=== PATIENT | female | born 1925 | race Caucasian/White ===

== ENCOUNTER 2017-08-13 21:52 | Inpatient (IN) ==
[2017-08-14] MEDS ORDERED: 0.9 % Sodium Chloride 1,000 ML IVC SCH (00:15)
[2017-08-14] MEDS ORDERED: Naloxone 0.4 MG/ML INJ IVP PRN (09:25)
[2017-08-14] MEDS: Pantoprazole 40 MG VIAL IVP SCH (09:36)
[2017-08-14 09:44] LABS: Basophils % 0.1 %; Eosinophils # 0.2 K/mcL (0.0-0.6); Eosinophils % 1.8 %; Hematocrit 38.1 % (35.3-44.9); Hemoglobin 12.8 g/dL (11.5-15.4); Immature Granulocytes % 0.2 % (0-4); Lymphocytes # 0.6 K/mcL (0.6-4.6); Lymphocytes % 7.9 %; Mean Corpuscular HGB Conc 33.6 g/dL (31.6-35.5); Mean Corpuscular Hemoglobin 28.8 pg (28.0-33.3); Mean Corpuscular Volume 85.6 fL (83.0-100.0); Mean Platelet Volume 9.6 fL (9.4-12.4); Monocytes % 12.4 %; Neutrophils # 6.3 K/mcL (1.6-8.9); Platelet Count 193 K/mcL (140-400); Red Blood Count 4.45 M/mcL (3.82-4.97); Red Cell Distribution Width 14.3 % (11.5-14.5); Segmented Neutrophils % 77.6 %
[2017-08-14 10:01] LABS: BUN/Creatinine Ratio 23 (6-26); Blood Urea Nitrogen 18 mg/dL (7-20); Carbon Dioxide 26 mEq/L (19-29); Chloride 103 mEq/L (98-109); Potassium 2.9 mEq/L (3.5-4.5); Sodium 139 mEq/L (136-145); eGFR For African Americans > 60 (> 60)
[2017-08-14 10:02] LABS: Alanine Aminotransferase 18 Units/L (0-55); Albumin 3.2 g/dL (3.5-5.0); Albumin/Globulin Ratio 1.1 (1.1-2.2); Alkaline Phosphatase 71 Units/L (38-126); Aspartate Amino Transferase 27 Units/L (5-34); Bilirubin,Direct 0.7 mg/dL (0.0-0.5); Bilirubin,Indirect 1.6 mg/dL (0.0-1.2); Calcium 8.8 mg/dL (8.6-10.8); Globulin 2.9 g/dL (2.4-3.5); Glucose 98 mg/dL (70-99); Magnesium 1.3 mg/dL (1.6-2.6); Osmolality,Calculated 290 (280-300); Phosphorous 2.5 mg/dL (2.3-4.7); Total Protein 6.1 g/dL (6.0-8.3); eGFR For Non-African Americans > 60 (> 60)
[2017-08-14 10:03] LABS: Bilirubin,Total 2.3 mg/dL (0.2-1.2)
--- NOTE | 2017-08-14 12:15 | General Surg History&Physical ---
Date of Encounter: 08/14/17 Time of Encounter: 10:00 Assessment and Plan (1) Partial small bowel obstruction Current Visit: Yes Status: Acute The assessment and plan as outlined above was discussed with the patient and/or family members who expressed understanding and agreement. All questions were answered. Discussed with the patient that her CT scan is consistent with a partial small bowel obstruction as are her complaints. It is likely it is a partial small bowel obstruction due to adhesions. There is not an ICD 10 code in [facility] that allows us to pick that option. As she currently feels better and is still passing gas and stool through her colostomy we will start her on clears and see if she tolerates. (2) Nausea and vomiting Current Visit: Yes Status: Acute The assessment and plan as outlined above was discussed with the patient and/or family members who expressed understanding and agreement. All questions were answered. When necessary anti emetic Qualifiers: Vomiting type: unspecified Vomiting Intractability: non-intractable Qualified Code(s): R11.2 - Nausea with vomiting, unspecified (3) Abdominal pain Current Visit: No Status: Acute The assessment and plan as outlined above was discussed with the patient and/or family members who expressed understanding and agreement. All questions were answered. When necessary pain control Qualifiers: Abdominal location: generalized Qualified Code(s): R10.84 - Generalized abdominal pain (4) Headache Current Visit: Yes Status: Acute The assessment and plan as outlined above was discussed with the patient and/or family members who expressed understanding and agreement. All questions were answered. patient is complaiinng of a headache starting today, will give prn tylenol and see if it helps Qualifiers: Headache type: unspecified Headache chronicity pattern: acute headache Intractability: not intractable Qualified Code(s): R51 - Headache History of Present Illness Chief complaint: nausea,vomiting, abdominal pain HPI: Ms. Lange is a 89 year old female who presents with abdominal pain nausea and vomiting since Tuesday which is 2 half days ago. She states the pain was throughout her abdomen and was sharp and as well as crampy. Over time the pain got worse. She was still passing flatus and having bowel movements throughout this time. She denies any fevers chills or night sweats. She denies any dysuria. Patient had an APR in 1996 for rectal cancer and did not receive any chemotherapy or radiation afterwards. She is unaware when her last colonoscopy was. Today she denies any abdominal pain nausea or vomiting. She denies any melena or hematochezia. Due to her abdominal pain last evening she presented to [place] [facility]. CT scan of the abdomen and pelvis was done which showed dilated loops of small bowel filled with fluid proximally and decompressed small bowel distally but no obvious transition point. Past Med Surg Social Fam HX - Past Medical History Source: patient Medical history: arthritis, cancer (rectal cancer/s.p APR (no chemo/xrt)), hypertension, other (renal stones) Psychiatric history: no psych history - Past Surgical History Surgical History: other (lithotripsy, APR, partial hysterectomy) - Social History Smoking Status: Never smoker Smokeless Tobacco Status: No Alcohol use: rarely Drug use: none - Family History Grandmother History Unknown: Yes Medications and Allergies Cholecalciferol (Vitamin D3) [Vitamin D3] 2,000 meq PO DAILY 06/21/16 [History] Metoprolol XL (24 HR) Succ [Toprol Xl] 100 mg PO DAILY 06/21/16 [History] cloNIDine HCl [CloNIDine HCl] 0.1 mg PO BID 06/21/16 [History] Acetaminophen [Tylenol] 650 mg PO Q6HR 10/05/16 [History] hydroCHLOROthiazide [Hydrochlorothiazide] 25 mg PO DAILY 08/13/17 [History] 3 Allergy/AdvReac Type Severity Reaction Status Date / Time Amoxicillin [From Augmentin] AdvReac Hives Verified 10/05/16 09:48 celecoxib [From Celebrex] AdvReac Hives Verified 10/05/16 09:48 ciprofloxacin [From Cipro] AdvReac Hives Verified 10/05/16 09:48 clavulanic acid AdvReac Hives Verified 10/05/16 09:48 [From Augmentin] penicillamine AdvReac Hives Verified 10/05/16 09:48 Sulfa (Sulfonamide AdvReac Hives Verified 10/05/16 09:48 Antibiotics) Review of Systems All systems PM: reviewed and no additional remarkable complaints except as stated All systems PM: A 10-system review of systems was performed and is negative for pertinent findings except as documented above in the HPI. General Surgery Exam Initial Vital Signs Temp Pulse Resp BP Pulse Ox 98.2 F 78 16 156/67 96 08/14/17 00:05 11/05/17 00:05 08/14/17 00:05 08/14/17 00:05 08/14/17 00:05 - General physical appearance well developed, well nourished, no distress - Eyes PERRL, normal ocular movement - ENT normal mucosa, normocephalic - Neck trachea midline - Respiratory normal expansion, clear to auscultation - Cardiovascular Cardiovascular exam: Present: RRR, no murmurs/rubs/gallops - Abdomen Abdomen general surgery: Present: bowel sounds present, soft, non tender. Absent: distended, guarding, rebound - Integumentary Integumentary general surgery: Present: warm and dry, no abnormal pigmentation - Neurologic Present: CN 2-12 grossly intact, normal coordination - Musculoskeletal Present: normal posture - Psychiatric Psychiatric general surgery: Present: A&Ox3, speech is normal Results - Labs 08/14/17 09:32 08/14/17 09:32 Abnormal lab results Potassium 2.9 mEq/L (3.5-4.5) L 08/14/17 09:32 Magnesium 1.3 mg/dL (1.6-2.6) L 08/14/17 09:32 Total Bilirubin 2.3 mg/dL (0.2-1.2) H 08/14/17 09:32 Direct Bilirubin 0.7 mg/dL (0.0-0.5) H 08/14/17 09:32 Indirect Bilirubin 1.6 mg/dL (0.0-1.2) H 08/14/17 09:32 Albumin 3.2 g/dL (3.5-5.0) L 08/14/17 09:32 Diabetes panel 08/14/17 Range/Units 09:32 Sodium 139 (136-145) mEq/L Potassium 2.9 L (3.5-4.5) mEq/L Chloride 103 (98-109) mEq/L Carbon Dioxide 26 (19-29) mEq/L BUN 18 (7-20) mg/dL Creatinine 0.80 (0.57-1.11) mg/dL Glucose 98 (70-99) mg/dL Calcium 8.8 D (8.6-10.8) mg/dL AST 27 (5-34) Units/L ALT 18 (0-55) Units/L Alkaline Phosphatase 71 (38-126) Units/L Albumin 3.2 L (3.5-5.0) g/dL Calcium panel 08/14/17 Range/Units 09:32 Calcium 8.8 D (8.6-10.8) mg/dL Phosphorus 2.5 (2.3-4.7) mg/dL Albumin 3.2 L (3.5-5.0) g/dL Pituitary panel 08/14/17 Range/Units 09:32 Sodium 139 (136-145) mEq/L Potassium 2.9 L (3.5-4.5) mEq/L Chloride 103 (98-109) mEq/L Carbon Dioxide 26 (19-29) mEq/L BUN 18 (7-20) mg/dL Creatinine 0.80 (0.57-1.11) mg/dL Glucose 98 (70-99) mg/dL Calcium 8.8 D (8.6-10.8) mg/dL Adrenal panel 08/14/17 Range/Units 09:32 Sodium 139 (136-145) mEq/L Potassium 2.9 L (3.5-4.5) mEq/L Chloride 103 (98-109) mEq/L Carbon Dioxide 26 (19-29) mEq/L BUN 18 (7-20) mg/dL Creatinine 0.80 (0.57-1.11) mg/dL Glucose 98 (70-99) mg/dL Calcium 8.8 D (8.6-10.8) mg/dL Total Bilirubin 2.3 H (0.2-1.2) mg/dL AST 27 (5-34) Units/L ALT 18 (0-55) Units/L Alkaline Phosphatase 71 (38-126) Units/L Albumin 3.2 L (3.5-5.0) g/dL All other labs normal. - Imaging CT scan - abdomen: report reviewed, image reviewed CT scan - pelvis: report reviewed, image reviewed
[2017-08-14] MEDS ORDERED: Acetaminophen 325 MG TABLET PO PRN (12:27)
[2017-08-14] MEDS ORDERED: Potassium Chloride 40 MEQ, Lidocaine 1% 2 ML in D5% in Water 500 ML IVPB ONE (15:18)
[2017-08-14] MEDS: D5% in 0.45% NACL w KCl 20 MEQ/1,000 ML MLS IVC SCH (15:57)
[2017-08-14] MEDS: Ondansetron 4 MG/2 ML VIAL IVP PRN (20:59)
[2017-08-14] MEDS: *HR* Morphine 2 MG/ML SYRINGE IVP PRN (20:59)
[2017-08-15 04:29] LABS: BUN/Creatinine Ratio 16 (6-26); Blood Urea Nitrogen 11 mg/dL (7-20); Calcium 8.5 mg/dL (8.6-10.8); Carbon Dioxide 26 mEq/L (19-29); Chloride 105 mEq/L (98-109); Glucose 104 mg/dL (70-99); Osmolality,Calculated 290 (280-300); Potassium 3.2 mEq/L (3.5-4.5); eGFR For African Americans > 60 (> 60); eGFR For Non-African Americans > 60 (> 60)
[2017-08-15 04:40] LABS: Sodium 140 mEq/L (136-145)
[2017-08-15] MEDS: Pantoprazole 40 MG VIAL IVP SCH (09:29)
[2017-08-15] MEDS: Ondansetron 4 MG/2 ML VIAL IVP PRN (12:58)
[2017-08-15] MEDS: *HR* Morphine 2 MG/ML SYRINGE IVP PRN (14:20)
--- NOTE | 2017-08-15 14:51 | General Surgery Progress Note ---
<PrasanthShonda Candice - Last Filed: 08/15/17 17:20> Date of Encounter: 08/15/17 Time of Encounter: 14:51 - Assessment and Plan (1) Partial small bowel obstruction Current Visit: Yes Status: Acute 2-view abdominal x-ray consistent with small bowel obstruction. Will place NG tube. NPO IVF Continue antiemetics and discomfort management. Attempted to speak with patient's daughter per her request and updated on POC, but got voicemail. Left message for daughter to return call and bedside RN could update her. (2) Nausea and vomiting Current Visit: Yes Status: Acute see above Qualifiers: Vomiting type: unspecified Vomiting Intractability: non-intractable Qualified Code(s): R11.2 - Nausea with vomiting, unspecified (3) Lactose intolerance in adult Current Visit: Yes Status: Acute No lactose on trays Subjective Patient reports: no new complaints, feels better, tolerating liquids well (did not attempt lunch, stating "I am lactose intolerant and that is mostly what was on the tray"), voiding w/o difficulty, flatus (continues to have flatus and output in her ostomy), bowel movement, afebrile Objective Vital Signs - Last 8 Hours Temp Pulse Resp BP Pulse Ox 08/15/17 14:37 97.9 F 89 16 150/93 96 08/15/17 10:18 97.9 F 89 14 152/75 97 08/15/17 07:06 98.6 F 91 14 145/81 95 Intake and Output 08/14/17 08/15/17 08/15/17 23:59 07:59 15:59 Intake Total 742 / 742 350 / 350 240 / 240 Output Total 850 / 850 0 / 0 260 / 260 Balance -108 / -108 350 / 350 -20 / -20 Intake: IV Fluids 522 / 522 350 / 350 KCl 20mEq IN D5%-0.45 NACL 20 350 / 350 meq In 1,000 ml @ 45 mls/hr IVC .[id number] [facility] Rx#:[id number] KCl 40 MEQ Xylocaine 2 ML In 522 / 522 Dextrose 5% 500 ML @ 130.5 mls/ hr IVPB ONCE ONE Rx#:[id number] Oral 220 / 220 0 / 0 240 / 240 Output: Urine 550 / 550 0 / 0 200 / 200 Stool 300 / 300 0 / 0 60 / 60 Other: Meal Dinner Lunch Percent of Meal Consumed 0% Stool Consistency loose liquid liquid Stool Color Green Brown # Voids 1 - General physical appearance no distress, moderate pain - ENT atraumatic, normocephalic - Neck Neck exam: trachea midline, no venous distension - Respiratory normal expansion, normal respiratory effort, clear to auscultation - Cardiovascular Cardiovascular exam: Present: RRR, murmurs - Abdomen Abdomen: Present: bowel sounds present, soft, distended, tender, wound (air and liquid output noted in ostomy) Abdominal Tenderness: diffusely - Integumentary no rash, no growths - Neurologic normal coordination, normal sensation - Musculoskeletal normal gait, normal posture - Psychiatric oriented to time, oriented to person, oriented to place, speech is normal, memory intact - Labs 08/14/17 09:32 08/15/17 02:54 Diabetes panel 08/15/17 Range/Units 02:54 Sodium 140 (136-145) mEq/L Potassium 3.2 L (3.5-4.5) mEq/L Chloride 105 (98-109) mEq/L Carbon Dioxide 26 (19-29) mEq/L BUN 11 (7-20) mg/dL Creatinine 0.70 (0.57-1.11) mg/dL Glucose 104 H (70-99) mg/dL Calcium 8.5 L (8.6-10.8) mg/dL Calcium panel 08/15/17 Range/Units 02:54 Calcium 8.5 L (8.6-10.8) mg/dL Pituitary panel 08/15/17 Range/Units 02:54 Sodium 140 (136-145) mEq/L Potassium 3.2 L (3.5-4.5) mEq/L Chloride 105 (98-109) mEq/L Carbon Dioxide 26 (19-29) mEq/L BUN 11 (7-20) mg/dL Creatinine 0.70 (0.57-1.11) mg/dL Glucose 104 H (70-99) mg/dL Calcium 8.5 L (8.6-10.8) mg/dL Adrenal panel 08/15/17 Range/Units 02:54 Sodium 140 (136-145) mEq/L Potassium 3.2 L (3.5-4.5) mEq/L Chloride 105 (98-109) mEq/L Carbon Dioxide 26 (19-29) mEq/L BUN 11 (7-20) mg/dL Creatinine 0.70 (0.57-1.11) mg/dL Glucose 104 H (70-99) mg/dL Calcium 8.5 L (8.6-10.8) mg/dL Consult Discharge Plan - Plan Referrals: Dudley Gómez, DO [Primary Care Provider] - <Lisa Neely - Last Filed: 08/15/17 17:28> Date of Encounter: 08/15/17 - Assessment and Plan (1) Partial small bowel obstruction Current Visit: Yes Status: Acute patient with worsening of her psbo ngt ordered npo prn pain control gi/dvt prophylaxis OOB to chair ivf hydration (2) Nausea and vomiting Current Visit: Yes Status: Acute prn antiemetics Qualifiers: Vomiting type: unspecified Vomiting Intractability: non-intractable Qualified Code(s): R11.2 - Nausea with vomiting, unspecified (3) Abdominal pain Current Visit: No Status: Acute Qualifiers: Abdominal location: generalized Qualified Code(s): R10.84 - Generalized abdominal pain Subjective Narrative: pain is much worse today, she has no appetite, is nauseated still passing stool and liquid into colostomy Objective Vital Signs - Last 8 Hours Temp Pulse Resp BP Pulse Ox 08/15/17 14:37 97.9 F 89 16 150/93 96 08/15/17 10:18 97.9 F 89 14 152/75 97 Intake and Output 08/15/17 08/15/17 08/15/17 07:59 15:59 23:59 Intake Total 350 / 350 240 / 240 650 / 650 Output Total 0 / 0 260 / 260 Balance 350 / 350 -20 / -20 650 / 650 Intake: IV Fluids 350 / 350 650 / 650 KCl 20mEq IN D5%-0.45 NACL 20 350 / 350 650 / 650 meq In 1,000 ml @ 45 mls/hr IVC .[id number] [facility] Rx#:[id number] Oral 0 / 0 240 / 240 Output: Urine 0 / 0 200 / 200 Stool 0 / 0 60 / 60 Other: Meal Lunch Percent of Meal Consumed 0% Stool Consistency liquid Stool Color Brown # Voids 1 - General physical appearance well developed, well nourished, moderate pain - Eyes PERRL, normal ocular movement - ENT normal mucosa, normocephalic - Neck Neck exam: trachea midline - Respiratory normal expansion, clear to auscultation - Cardiovascular Cardiovascular exam: Present: RRR - Abdomen Abdomen: Present: bowel sounds present, soft, distended, tender. Absent: guarding, rebound Abdominal Tenderness: diffusely - Integumentary no rash, no growths - Neurologic normal coordination - Musculoskeletal normal posture - Psychiatric oriented to time, oriented to person, oriented to place, memory intact - Labs 08/14/17 09:32 08/15/17 02:54 Diabetes panel 08/15/17 Range/Units 02:54 Sodium 140 (136-145) mEq/L Potassium 3.2 L (3.5-4.5) mEq/L Chloride 105 (98-109) mEq/L Carbon Dioxide 26 (19-29) mEq/L BUN 11 (7-20) mg/dL Creatinine 0.70 (0.57-1.11) mg/dL Glucose 104 H (70-99) mg/dL Calcium 8.5 L (8.6-10.8) mg/dL Calcium panel 08/15/17 Range/Units 02:54 Calcium 8.5 L (8.6-10.8) mg/dL Pituitary panel 08/15/17 Range/Units 02:54 Sodium 140 (136-145) mEq/L Potassium 3.2 L (3.5-4.5) mEq/L Chloride 105 (98-109) mEq/L Carbon Dioxide 26 (19-29) mEq/L BUN 11 (7-20) mg/dL Creatinine 0.70 (0.57-1.11) mg/dL Glucose 104 H (70-99) mg/dL Calcium 8.5 L (8.6-10.8) mg/dL Adrenal panel 08/15/17 Range/Units 02:54 Sodium 140 (136-145) mEq/L Potassium 3.2 L (3.5-4.5) mEq/L Chloride 105 (98-109) mEq/L Carbon Dioxide 26 (19-29) mEq/L BUN 11 (7-20) mg/dL Creatinine 0.70 (0.57-1.11) mg/dL Glucose 104 H (70-99) mg/dL Calcium 8.5 L (8.6-10.8) mg/dL - Imaging Abdominal x-ray: report reviewed, image reviewed - Attending Attestation I have personally performed a face to face evaluation on this patient. I have reviewed and agree with the care plan. History and Exam by me shows:
[2017-08-15] MEDS: D5% in 0.45% NACL w KCl 20 MEQ/1,000 ML MLS IVC SCH (17:15)
[2017-08-15] MEDS ORDERED: Lidocaine Jelly 11 ml Syringe TP STA (17:19)
[2017-08-15] MEDS ORDERED: Chloraseptic Spray 177 ML BOTTLE MM PRN (17:29)
[2017-08-15] MEDS: Ondansetron 4 MG/2 ML VIAL IVP SCH (21:01)
[2017-08-16] MEDS: Ondansetron 4 MG/2 ML VIAL IVP SCH ×7 (02:31→23:45)
[2017-08-16] MEDS: D5% in 0.45% NACL w KCl 20 MEQ/1,000 ML MLS IVC SCH ×4 (07:55→20:45)
[2017-08-16] MEDS: Pantoprazole 40 MG VIAL IVP SCH (08:33)
[2017-08-16 08:58] LABS: Basophils % 0.2 %; Eosinophils % 0.7 %; Hematocrit 41.9 % (35.3-44.9); Hemoglobin 14.2 g/dL (11.5-15.4); Immature Granulocytes % 0.3 % (0-4); Lymphocytes # 0.6 K/mcL (0.6-4.6); Lymphocytes % 9.6 %; Mean Corpuscular HGB Conc 33.9 g/dL (31.6-35.5); Mean Corpuscular Hemoglobin 28.4 pg (28.0-33.3); Mean Corpuscular Volume 83.8 fL (83.0-100.0); Mean Platelet Volume 9.7 fL (9.4-12.4); Monocytes # 0.9 K/mcL (0.0-1.3); Monocytes % 14.9 %; Neutrophils # 4.3 K/mcL (1.6-8.9); Platelet Count 240 K/mcL (140-400); Red Cell Distribution Width 13.9 % (11.5-14.5); Segmented Neutrophils % 74.3 %
[2017-08-16 09:09] LABS: BUN/Creatinine Ratio 14 (6-26); Blood Urea Nitrogen 11 mg/dL (7-20); Calcium 9.1 mg/dL (8.6-10.8); Carbon Dioxide 22 mEq/L (19-29); Chloride 100 mEq/L (98-109); Glucose 134 mg/dL (70-99); Osmolality,Calculated 281 (280-300); Potassium 3.8 mEq/L (3.5-4.5); Sodium 135 mEq/L (136-145); eGFR For African Americans > 60 (> 60); eGFR For Non-African Americans > 60 (> 60)
[2017-08-16] MEDS ORDERED: Ondansetron 4 MG/2 ML VIAL IVP ONE (09:10)
[2017-08-16] MEDS ORDERED: *HR* Promethazine 25 MG/ML VIAL IM ONE (09:10)
[2017-08-16] MEDS ORDERED: *HR* HYDROmorphone (PF) 1 MG/ML SYRINGE IVP PRN (09:12)
--- NOTE | 2017-08-16 09:14 | General Surgery Progress Note ---
<Shonda Rader - Last Filed: 08/16/17 09:08> Date of Encounter: 08/16/17 Time of Encounter: 08:50 - Assessment and Plan (1) Partial small bowel obstruction Current Visit: Yes Status: Acute 2-view abdominal x-ray consistent with small bowel obstruction. NG placed 2016 (after 1730); noted 900 ml output since placed. Joseline states that she continues to have abdominal discomfort, nausea, and generally "just feels sick. " NPO continue NG tube though intermittent wall suction. IVF Continue antiemetics and discomfort management. Will schedule one time dose of Zofran and promethazine, then may have PRN per DEC. Will change morphine to dilaudid and add scheduled toradol. Replace electrolytes as indicated. Repeat a.m. labs. Out of bed to chair at least TID. (2) Nausea and vomiting Current Visit: Yes Status: Acute see above Qualifiers: Vomiting type: unspecified Vomiting Intractability: non-intractable Qualified Code(s): R11.2 - Nausea with vomiting, unspecified (3) Lactose intolerance in adult Current Visit: Yes Status: Acute No lactose on trays Subjective Patient reports: still having pain, voiding w/o difficulty, flatus, no bowel movement, nausea, afebrile Objective Vital Signs - Last 8 Hours Temp Pulse Resp BP Pulse Ox 08/16/17 07:22 98.2 F 110 16 132/88 95 08/16/17 05:16 98.0 F 99 18 150/89 95 08/16/17 01:42 97.6 F 77 16 165/88 93 Intake and Output 08/15/17 08/16/17 08/16/17 23:59 07:59 15:59 Intake Total 650 / 650 0 / 0 Output Total 250 / 250 900 / 900 Balance 400 / 400 -900 / -900 Intake: IV Fluids 650 / 650 KCl 20mEq IN D5%-0.45 NACL 20 650 / 650 meq In 1,000 ml @ 45 mls/hr IVC .[id number] [facility] Rx#:[id number] Oral 0 / 0 0 / 0 Output: Urine 250 / 250 0 / 0 Catheter 0 / 0 Gastric Drainage 900 / 900 Other: Meal NPO Percent of Meal Consumed 0% Blood Glucose* 126 - General physical appearance no distress, moderate pain, other (ill appearing) - Eyes normal ocular movement - ENT atraumatic, normocephalic - Neck Neck exam: trachea midline, no venous distension - Respiratory normal expansion, normal respiratory effort, clear to auscultation - Cardiovascular Cardiovascular exam: Present: RRR, murmurs - Abdomen Abdomen: Present: bowel sounds present (Faint and hypoactive at best.), soft, tender, wound (Small amount of air in ostomy) Hernia: none - Integumentary no rash - Neurologic normal coordination, normal sensation - Musculoskeletal normal posture - Psychiatric oriented to time, oriented to person, oriented to place, speech is normal, memory intact - Labs 08/16/17 08:53 08/15/17 02:54 Consult Discharge Plan - Plan Referrals: Dudley Gómez, [Primary Care Provider] - <Lisa Neely - Last Filed: 08/17/17 22:11> Date of Encounter: 08/16/17 - Assessment and Plan (1) Partial small bowel obstruction Current Visit: Yes Status: Acute (2) Nausea and vomiting Current Visit: Yes Status: Acute prn antiemetics Qualifiers: Vomiting type: unspecified Vomiting Intractability: non-intractable Qualified Code(s): R11.2 - Nausea with vomiting, unspecified (3) Abdominal pain Current Visit: No Status: Acute continue prn pain medication Qualifiers: Abdominal location: generalized Qualified Code(s): R10.84 - Generalized abdominal pain (4) Small bowel obstruction due to adhesions Current Visit: Yes Status: Acute partial small bowel obstruction due to adhesions continue ngt to liws prn pain control gi/dvt prophylaxis ice chips/popcicles ok OOB to chair Subjective Narrative: patient having abdominal pain some nausea small amount of flatus and stool in colostomy Objective Vital Signs - Last 8 Hours Temp Pulse Resp BP Pulse Ox 08/17/17 19:44 98.2 F 97 15 151/91 95 08/17/17 15:52 98.2 F 105 16 148/84 95 Intake and Output 08/17/17 08/17/17 08/17/17 07:59 15:59 23:59 Intake Total 0 / 0 0 / 0 1050 / 1050 Output Total 0 / 0 100 / 100 Balance 0 / 0 0 / 0 950 / 950 Intake: IV Fluids 1050 / 1050 KCl 20mEq IN D5%-0.45 NACL 20 1000 / 1000 meq In 1,000 ml @ 80 mls/hr IVC .[id number] [facility] Rx#:[id number] Oral 0 / 0 0 / 0 0 / 0 Output: Urine 0 / 0 100 / 100 Other: Meal NPO NPO Percent of Meal Consumed 0% 0% Weight 47.673 kg Blood Glucose* 96 96 115 Patient Weight 08/17/17 23:59 Weight 47.673 kg - General physical appearance well nourished, no distress, moderate pain - Eyes PERRL, normal ocular movement - ENT normal mucosa, normocephalic - Neck Neck exam: trachea midline - Respiratory normal expansion, clear to auscultation - Cardiovascular Cardiovascular exam: Present: RRR - Abdomen Abdomen: Present: bowel sounds present, soft, tender - Integumentary no rash, no growths - Neurologic normal coordination, normal sensation - Musculoskeletal normal posture - Psychiatric oriented to time, oriented to person, oriented to place, speech is normal, memory intact - Labs 08/17/17 08:40 08/17/17 08:40 Diabetes panel 08/17/17 Range/Units 08:40 Sodium 135 L (136-145) mEq/L Potassium 3.7 (3.5-4.5) mEq/L Chloride 102 (98-109) mEq/L Carbon Dioxide 25 (19-29) mEq/L BUN 15 (7-20) mg/dL Creatinine 0.84 (0.57-1.11) mg/dL Glucose 129 H (70-99) mg/dL Calcium 8.7 (8.6-10.8) mg/dL AST 17 (5-34) Units/L ALT 13 (0-55) Units/L Alkaline Phosphatase 91 (38-126) Units/L Albumin 3.2 L (3.5-5.0) g/dL Calcium panel 08/17/17 Range/Units 08:40 Calcium 8.7 (8.6-10.8) mg/dL Albumin 3.2 L (3.5-5.0) g/dL Pituitary panel 08/17/17 Range/Units 08:40 Sodium 135 L (136-145) mEq/L Potassium 3.7 (3.5-4.5) mEq/L Chloride 102 (98-109) mEq/L Carbon Dioxide 25 (19-29) mEq/L BUN 15 (7-20) mg/dL Creatinine 0.84 (0.57-1.11) mg/dL Glucose 129 H (70-99) mg/dL Calcium 8.7 (8.6-10.8) mg/dL Adrenal panel 08/17/17 Range/Units 08:40 Sodium 135 L (136-145) mEq/L Potassium 3.7 (3.5-4.5) mEq/L Chloride 102 (98-109) mEq/L Carbon Dioxide 25 (19-29) mEq/L BUN 15 (7-20) mg/dL Creatinine 0.84 (0.57-1.11) mg/dL Glucose 129 H (70-99) mg/dL Calcium 8.7 (8.6-10.8) mg/dL Total Bilirubin 1.7 H (0.2-1.2) mg/dL AST 17 (5-34) Units/L ALT 13 (0-55) Units/L Alkaline Phosphatase 91 (38-126) Units/L Albumin 3.2 L (3.5-5.0) g/dL - Attending Attestation I have personally performed a face to face evaluation on this patient. I have reviewed and agree with the care plan. History and Exam by me shows:
[2017-08-16 09:27] LABS: Magnesium 1.2 mg/dL (1.6-2.6)
[2017-08-16] MEDS: Ketorolac 15 MG/ML VIAL IVP SCH ×4 (12:05→23:45)
[2017-08-16] MEDS: *HR* Metoprolol 5 MG/5 ML VIAL IVP SCH ×3 (12:18→23:44)
[2017-08-16] MEDS ORDERED: *HR* Promethazine 25 MG/ML VIAL IVP PRN (15:00)
[2017-08-17] MEDS: *HR* Metoprolol 5 MG/5 ML VIAL IVP SCH ×3 (05:11→17:34)
[2017-08-17] MEDS: Ketorolac 15 MG/ML VIAL IVP SCH ×3 (05:11→19:35)
[2017-08-17] MEDS: Ondansetron 4 MG/2 ML VIAL IVP SCH ×5 (05:11→20:53)
[2017-08-17 09:00] LABS: Basophils % 0.3 %; Eosinophils # 0.3 K/mcL (0.0-0.6); Eosinophils % 3.9 %; Hematocrit 43.8 % (35.3-44.9); Hemoglobin 14.3 g/dL (11.5-15.4); Immature Granulocytes % 0.3 % (0-4); Lymphocytes # 0.9 K/mcL (0.6-4.6); Lymphocytes % 12.7 %; Mean Corpuscular HGB Conc 32.6 g/dL (31.6-35.5); Mean Corpuscular Hemoglobin 28.3 pg (28.0-33.3); Mean Corpuscular Volume 86.7 fL (83.0-100.0); Mean Platelet Volume 9.9 fL (9.4-12.4); Monocytes # 1.2 K/mcL (0.0-1.3); Monocytes % 16.9 %; Neutrophils # 4.8 K/mcL (1.6-8.9); Platelet Count 279 K/mcL (140-400); Red Blood Count 5.05 M/mcL (3.82-4.97); Red Cell Distribution Width 14.1 % (11.5-14.5); Segmented Neutrophils % 65.9 %
[2017-08-17 09:03] LABS: Alanine Aminotransferase 13 Units/L (0-55); Albumin 3.2 g/dL (3.5-5.0); Albumin/Globulin Ratio 0.8 (1.1-2.2); Alkaline Phosphatase 91 Units/L (38-126); Aspartate Amino Transferase 17 Units/L (5-34); BUN/Creatinine Ratio 18 (6-26); Bilirubin,Total 1.7 mg/dL (0.2-1.2); Blood Urea Nitrogen 15 mg/dL (7-20); Calcium 8.7 mg/dL (8.6-10.8); Carbon Dioxide 25 mEq/L (19-29); Chloride 102 mEq/L (98-109); Globulin 3.8 g/dL (2.4-3.5); Glucose 129 mg/dL (70-99); Osmolality,Calculated 283 (280-300); Potassium 3.7 mEq/L (3.5-4.5); Sodium 135 mEq/L (136-145); eGFR For African Americans > 60 (> 60); eGFR For Non-African Americans > 60 (> 60)
[2017-08-17] MEDS: Pantoprazole 40 MG VIAL IVP SCH (11:10)
--- NOTE | 2017-08-17 11:15 | General Surgery Progress Note ---
<Shonda Rader - Last Filed: 08/17/17 13:36> Date of Encounter: 08/17/17 Time of Encounter: 10:45 - Assessment and Plan (1) Partial small bowel obstruction Current Visit: Yes Status: Acute Overall states feeling better. She has an appetite and requests something to drink. Will obtain repeat 2-view XR. If unremarkable, will trial NG to nieto bag; further recommendations pending. Replace electrolytes as indicated. Repeat a.m. labs. Out of bed to chair at least TID. UPDATE: 1330, abdominal images reveal improved bowel gas patterns; however, she still complains of intermittent left upper quadrant discomfort. We will trial her NG to gravity however we will refrain from offering clear liquids at this time. May replace NG to low intermittent wall suction if she has nausea, vomiting, or increased abdominal discomfort. (2) Nausea and vomiting Current Visit: Yes Status: Acute see above Qualifiers: Vomiting type: unspecified Vomiting Intractability: non-intractable Qualified Code(s): R11.2 - Nausea with vomiting, unspecified (3) Lactose intolerance in adult Current Visit: Yes Status: Acute No lactose on trays Subjective Patient reports: no new complaints, feels better, voiding w/o difficulty, flatus , bowel movement, afebrile Objective Vital Signs - Last 8 Hours Temp Pulse Resp BP Pulse Ox 08/17/17 04:56 98.6 F 92 14 137/77 95 Intake and Output 08/16/17 08/17/17 08/17/17 23:59 07:59 15:59 Intake Total 1000 / 1000 0 / 0 0 / 0 Output Total 0 / 0 Balance 1000 / 1000 0 / 0 0 / 0 Intake: IV Fluids 1000 / 1000 KCl 20mEq IN D5%-0.45 NACL 20 1000 / 1000 meq In 1,000 ml @ 80 mls/hr IVC .[id number] [facility] Rx#:[id number] Oral 0 / 0 0 / 0 0 / 0 Output: Urine 0 / 0 Other: Meal NPO Breakfast Percent of Meal Consumed 0% # Voids 1 Weight 47.673 kg Blood Glucose* 96 Patient Weight 08/17/17 23:59 Weight 47.673 kg - General physical appearance no distress - Eyes normal ocular movement - Neck Neck exam: no masses, trachea midline - Respiratory normal expansion, normal respiratory effort, clear to auscultation - Cardiovascular Cardiovascular exam: Present: RRR, murmurs (2/6 systolic murmur at the LSB, 3ICS ) - Abdomen Abdomen: Present: bowel sounds present, soft, non tender, wound (Gas and output noted to the ostomy) Hernia: none - Integumentary no rash, no growths - Neurologic normal coordination, normal sensation - Musculoskeletal normal posture - Psychiatric oriented to time, oriented to person, oriented to place, speech is normal, memory intact - Labs 08/17/17 08:40 08/17/17 08:40 Diabetes panel 08/17/17 Range/Units 08:40 Sodium 135 L (136-145) mEq/L Potassium 3.7 (3.5-4.5) mEq/L Chloride 102 (98-109) mEq/L Carbon Dioxide 25 (19-29) mEq/L BUN 15 (7-20) mg/dL Creatinine 0.84 (0.57-1.11) mg/dL Glucose 129 H (70-99) mg/dL Calcium 8.7 (8.6-10.8) mg/dL AST 17 (5-34) Units/L ALT 13 (0-55) Units/L Alkaline Phosphatase 91 (38-126) Units/L Albumin 3.2 L (3.5-5.0) g/dL Calcium panel 08/17/17 Range/Units 08:40 Calcium 8.7 (8.6-10.8) mg/dL Albumin 3.2 L (3.5-5.0) g/dL Pituitary panel 08/17/17 Range/Units 08:40 Sodium 135 L (136-145) mEq/L Potassium 3.7 (3.5-4.5) mEq/L Chloride 102 (98-109) mEq/L Carbon Dioxide 25 (19-29) mEq/L BUN 15 (7-20) mg/dL Creatinine 0.84 (0.57-1.11) mg/dL Glucose 129 H (70-99) mg/dL Calcium 8.7 (8.6-10.8) mg/dL Adrenal panel 08/17/17 Range/Units 08:40 Sodium 135 L (136-145) mEq/L Potassium 3.7 (3.5-4.5) mEq/L Chloride 102 (98-109) mEq/L Carbon Dioxide 25 (19-29) mEq/L BUN 15 (7-20) mg/dL Creatinine 0.84 (0.57-1.11) mg/dL Glucose 129 H (70-99) mg/dL Calcium 8.7 (8.6-10.8) mg/dL Total Bilirubin 1.7 H (0.2-1.2) mg/dL AST 17 (5-34) Units/L ALT 13 (0-55) Units/L Alkaline Phosphatase 91 (38-126) Units/L Albumin 3.2 L (3.5-5.0) g/dL Consult Discharge Plan - Plan Referrals: Dudley Gómez, DO [Primary Care Provider] - <Lisa Neely - Last Filed: 08/17/17 22:14> Date of Encounter: 08/17/17 - Assessment and Plan (1) Partial small bowel obstruction Current Visit: Yes Status: Acute (2) Nausea and vomiting Current Visit: Yes Status: Acute Qualifiers: Vomiting type: unspecified Vomiting Intractability: non-intractable Qualified Code(s): R11.2 - Nausea with vomiting, unspecified (3) Abdominal pain Current Visit: No Status: Acute prn pain control Qualifiers: Abdominal location: generalized Qualified Code(s): R10.84 - Generalized abdominal pain (4) Small bowel obstruction due to adhesions Current Visit: Yes Status: Acute some improvement in partial small bowel obstruction continue ngt to gravity, ok ice chips and popcicles OOB to chair ambulate gi/dvt prophylaxis aggressive IS Subjective Patient reports: feels better, still having pain, pain is less, voiding w/o difficulty, flatus, bowel movement Objective Vital Signs - Last 8 Hours Temp Pulse Resp BP Pulse Ox 08/17/17 19:44 98.2 F 97 15 151/91 95 08/17/17 15:52 98.2 F 105 16 148/84 95 Intake and Output 08/17/17 08/17/17 08/17/17 07:59 15:59 23:59 Intake Total 0 / 0 0 / 0 1050 / 1050 Output Total 0 / 0 100 / 100 Balance 0 / 0 0 / 0 950 / 950 Intake: IV Fluids 1050 / 1050 KCl 20mEq IN D5%-0.45 NACL 20 1000 / 1000 meq In 1,000 ml @ 80 mls/hr IVC .[id number] [facility] Rx#:[id number] Oral 0 / 0 0 / 0 0 / 0 Output: Urine 0 / 0 100 / 100 Other: Meal NPO NPO Percent of Meal Consumed 0% 0% Weight 47.673 kg Blood Glucose* 96 96 115 Patient Weight 08/17/17 23:59 Weight 47.673 kg - General physical appearance no distress - Eyes PERRL, normal ocular movement - ENT normal mucosa, normocephalic - Neck Neck exam: trachea midline - Respiratory normal expansion, clear to auscultation - Cardiovascular Cardiovascular exam: Present: RRR - Abdomen Abdomen: Present: bowel sounds present, soft, tender Abdominal Tenderness: LLQ - Integumentary no rash, no growths - Neurologic normal coordination, normal sensation - Musculoskeletal normal posture - Psychiatric oriented to time, oriented to person, oriented to place, speech is normal, memory intact - Labs 08/17/17 08:40 08/17/17 08:40 Diabetes panel 08/17/17 Range/Units 08:40 Sodium 135 L (136-145) mEq/L Potassium 3.7 (3.5-4.5) mEq/L Chloride 102 (98-109) mEq/L Carbon Dioxide 25 (19-29) mEq/L BUN 15 (7-20) mg/dL Creatinine 0.84 (0.57-1.11) mg/dL Glucose 129 H (70-99) mg/dL Calcium 8.7 (8.6-10.8) mg/dL AST 17 (5-34) Units/L ALT 13 (0-55) Units/L Alkaline Phosphatase 91 (38-126) Units/L Albumin 3.2 L (3.5-5.0) g/dL Calcium panel 08/17/17 Range/Units 08:40 Calcium 8.7 (8.6-10.8) mg/dL Albumin 3.2 L (3.5-5.0) g/dL Pituitary panel 08/17/17 Range/Units 08:40 Sodium 135 L (136-145) mEq/L Potassium 3.7 (3.5-4.5) mEq/L Chloride 102 (98-109) mEq/L Carbon Dioxide 25 (19-29) mEq/L BUN 15 (7-20) mg/dL Creatinine 0.84 (0.57-1.11) mg/dL Glucose 129 H (70-99) mg/dL Calcium 8.7 (8.6-10.8) mg/dL Adrenal panel 08/17/17 Range/Units 08:40 Sodium 135 L (136-145) mEq/L Potassium 3.7 (3.5-4.5) mEq/L Chloride 102 (98-109) mEq/L Carbon Dioxide 25 (19-29) mEq/L BUN 15 (7-20) mg/dL Creatinine 0.84 (0.57-1.11) mg/dL Glucose 129 H (70-99) mg/dL Calcium 8.7 (8.6-10.8) mg/dL Total Bilirubin 1.7 H (0.2-1.2) mg/dL AST 17 (5-34) Units/L ALT 13 (0-55) Units/L Alkaline Phosphatase 91 (38-126) Units/L Albumin 3.2 L (3.5-5.0) g/dL - Attending Attestation I have personally performed a face to face evaluation on this patient. I have reviewed and agree with the care plan. History and Exam by me shows:
[2017-08-17] MEDS: D5% in 0.45% NACL w KCl 20 MEQ/1,000 ML MLS IVC SCH ×2 (17:29→19:29)
[2017-08-18] MEDS: Ondansetron 4 MG/2 ML VIAL IVP SCH ×6 (00:04→23:07)
[2017-08-18] MEDS: Ketorolac 15 MG/ML VIAL IVP SCH ×2 (00:04→05:50)
[2017-08-18] MEDS: *HR* Metoprolol 5 MG/5 ML VIAL IVP SCH ×4 (00:04→18:46)
[2017-08-18 04:41] LABS: Eosinophils # 0.2 K/mcL (0.0-0.6); Eosinophils % 2.7 %; Hematocrit 37.7 % (35.3-44.9); Immature Granulocytes % 0.3 % (0-4); Lymphocytes # 0.6 K/mcL (0.6-4.6); Lymphocytes % 10.5 %; Mean Corpuscular HGB Conc 33.2 g/dL (31.6-35.5); Mean Corpuscular Hemoglobin 28.5 pg (28.0-33.3); Mean Corpuscular Volume 85.9 fL (83.0-100.0); Mean Platelet Volume 10.1 fL (9.4-12.4); Monocytes # 1.3 K/mcL (0.0-1.3); Monocytes % 21.6 %; Neutrophils # 3.8 K/mcL (1.6-8.9); Platelet Count 219 K/mcL (140-400); Red Blood Count 4.39 M/mcL (3.82-4.97); Red Cell Distribution Width 13.8 % (11.5-14.5); Segmented Neutrophils % 64.9 %
[2017-08-18 04:51] LABS: Hemoglobin 12.5 g/dL (11.5-15.4)
[2017-08-18 04:55] LABS: BUN/Creatinine Ratio 22 (6-26); Blood Urea Nitrogen 15 mg/dL (7-20); Calcium 8.3 mg/dL (8.6-10.8); Carbon Dioxide 25 mEq/L (19-29); Chloride 105 mEq/L (98-109); Glucose 123 mg/dL (70-99); Magnesium 1.6 mg/dL (1.6-2.6); Osmolality,Calculated 286 (280-300); Sodium 137 mEq/L (136-145); eGFR For African Americans > 60 (> 60); eGFR For Non-African Americans > 60 (> 60)
[2017-08-18 05:28] LABS: Platelet Estimate Normal (Normal); Reactive Lymphocytes Present (Not Present)
[2017-08-18] MEDS: D5% in 0.45% NACL w KCl 20 MEQ/1,000 ML MLS IVC SCH ×2 (08:44→23:07)
[2017-08-18] MEDS ORDERED: *HR* Morphine 2 MG/ML SYRINGE IVP PRN (08:52)
[2017-08-18] MEDS: Pantoprazole 40 MG VIAL IVP SCH (09:35)
--- NOTE | 2017-08-18 14:48 | General Surgery Progress Note ---
<Shonda Rader - Last Filed: 08/18/17 16:05> Date of Encounter: 08/18/17 Time of Encounter: 13:00 - Assessment and Plan (1) Partial small bowel obstruction Current Visit: Yes Status: Acute SBFT demonstrates worsening SBO. Her NG is replaced to suction and we will plan for surgical intervention in the next 24-48 hours. Risks, benefits, and recommendations were reviewed with patient and she is agreeable to proceed. (2) Nausea and vomiting Current Visit: Yes Status: Acute see above Qualifiers: Vomiting type: unspecified Vomiting Intractability: non-intractable Qualified Code(s): R11.2 - Nausea with vomiting, unspecified (3) Lactose intolerance in adult Current Visit: Yes Status: Acute No lactose on trays Subjective Patient reports: still having pain, pain is less, flatus, bowel movement, nausea , afebrile Objective Vital Signs - Last 8 Hours Temp Pulse Resp BP Pulse Ox 08/18/17 06:49 98.9 F 92 18 146/82 96 Intake and Output 08/17/17 08/18/17 08/18/17 23:59 07:59 15:59 Intake Total 1050 / 1050 1000 / 1000 0 / 0 Output Total 100 / 100 0 / 0 500 / 500 Balance 950 / 950 1000 / 1000 -500 / -500 Intake: IV Fluids 1050 / 1050 1000 / 1000 KCl 20mEq IN D5%-0.45 NACL 20 1000 / 1000 1000 / 1000 meq In 1,000 ml @ 80 mls/hr IVC .[id number] [facility] Rx#:[id number] Oral 0 / 0 0 / 0 0 / 0 Output: Urine 100 / 100 0 / 0 300 / 300 Stool 200 / 200 Other: Meal NPO NPO Percent of Meal Consumed 0% Stool Consistency liquid # Voids 1 # Bowel Movements 1 Weight 47.8 kg Blood Glucose* 115 111 Patient Weight 08/18/17 23:59 Weight 47.8 kg - General physical appearance no distress - Eyes normal ocular movement - ENT atraumatic, normocephalic - Neck Neck exam: trachea midline - Cardiovascular Cardiovascular exam: Present: RRR - Abdomen Abdomen: Present: bowel sounds present, soft, tender - Integumentary no abnormal pigmentation - Neurologic normal coordination, normal sensation - Musculoskeletal normal posture - Psychiatric oriented to time, oriented to person, oriented to place, speech is normal, memory intact - Labs 08/18/17 04:05 08/18/17 04:05 Diabetes panel 08/18/17 Range/Units 04:05 Sodium 137 (136-145) mEq/L Potassium 4.0 (3.5-4.5) mEq/L Chloride 105 (98-109) mEq/L Carbon Dioxide 25 (19-29) mEq/L BUN 15 (7-20) mg/dL Creatinine 0.69 (0.57-1.11) mg/dL Glucose 123 H (70-99) mg/dL Calcium 8.3 L (8.6-10.8) mg/dL Calcium panel 08/18/17 Range/Units 04:05 Calcium 8.3 L (8.6-10.8) mg/dL Phosphorus 2.0 L (2.3-4.7) mg/dL Pituitary panel 08/18/17 Range/Units 04:05 Sodium 137 (136-145) mEq/L Potassium 4.0 (3.5-4.5) mEq/L Chloride 105 (98-109) mEq/L Carbon Dioxide 25 (19-29) mEq/L BUN 15 (7-20) mg/dL Creatinine 0.69 (0.57-1.11) mg/dL Glucose 123 H (70-99) mg/dL Calcium 8.3 L (8.6-10.8) mg/dL Adrenal panel 08/18/17 Range/Units 04:05 Sodium 137 (136-145) mEq/L Potassium 4.0 (3.5-4.5) mEq/L Chloride 105 (98-109) mEq/L Carbon Dioxide 25 (19-29) mEq/L BUN 15 (7-20) mg/dL Creatinine 0.69 (0.57-1.11) mg/dL Glucose 123 H (70-99) mg/dL Calcium 8.3 L (8.6-10.8) mg/dL Consult Discharge Plan - Plan Referrals: Dudley Gómez, [Primary Care Provider] - <Lisa Neely - Last Filed: 08/18/17 16:57> Date of Encounter: 08/18/17 - Assessment and Plan (1) Partial small bowel obstruction Current Visit: Yes Status: Acute (2) Nausea and vomiting Current Visit: Yes Status: Acute Qualifiers: Vomiting type: unspecified Vomiting Intractability: non-intractable Qualified Code(s): R11.2 - Nausea with vomiting, unspecified (3) Abdominal pain Current Visit: No Status: Acute Qualifiers: Abdominal location: generalized Qualified Code(s): R10.84 - Generalized abdominal pain (4) Small bowel obstruction due to adhesions Current Visit: Yes Status: Acute patient with continued partial small bowel obstruction presumably due to adhesions, sbft discussed with patient and daughter, she is just not resolving this psbo, will plan exploratory laparotomy, possible small bowel resection, risks and benefits discussed with patient and she wishes to proceed cont ngt to liws Subjective Patient reports: still having pain Narrative: she is still passing flatus and liquid into her colostomy still having left lateral lower abdominal pain, nausea and emesis Objective Vital Signs - Last 8 Hours Temp Pulse Resp BP Pulse Ox 08/18/17 15:36 98.2 F 104 18 125/83 93 Intake and Output 08/18/17 08/18/17 08/18/17 07:59 15:59 23:59 Intake Total 1000 / 1000 0 / 0 Output Total 0 / 0 700 / 700 Balance 1000 / 1000 -700 / -700 Intake: IV Fluids 1000 / 1000 KCl 20mEq IN D5%-0.45 NACL 20 1000 / 1000 meq In 1,000 ml @ 80 mls/hr IVC .[id number] [facility] Rx#:[id number] Oral 0 / 0 0 / 0 Output: Urine 0 / 0 300 / 300 Stool 400 / 400 Other: Meal NPO Weight 47.8 kg Blood Glucose* 111 Patient Weight 08/18/17 23:59 Weight 47.8 kg - General physical appearance well nourished, no distress - Eyes normal ocular movement - ENT normal mucosa, normocephalic - Neck Neck exam: trachea midline - Respiratory normal expansion, clear to auscultation - Cardiovascular Cardiovascular exam: Present: RRR - Abdomen Abdomen: Present: bowel sounds present, soft, distended, tender. Absent: guarding, rebound Abdominal Tenderness: LLQ - Integumentary no abnormal pigmentation - Neurologic normal coordination - Musculoskeletal normal posture - Psychiatric oriented to time, oriented to person, oriented to place, speech is normal, memory intact - Labs 08/18/17 04:05 08/18/17 04:05 Diabetes panel 08/18/17 Range/Units 04:05 Sodium 137 (136-145) mEq/L Potassium 4.0 (3.5-4.5) mEq/L Chloride 105 (98-109) mEq/L Carbon Dioxide 25 (19-29) mEq/L BUN 15 (7-20) mg/dL Creatinine 0.69 (0.57-1.11) mg/dL Glucose 123 H (70-99) mg/dL Calcium 8.3 L (8.6-10.8) mg/dL Calcium panel 08/18/17 Range/Units 04:05 Calcium 8.3 L (8.6-10.8) mg/dL Phosphorus 2.0 L (2.3-4.7) mg/dL Pituitary panel 08/18/17 Range/Units 04:05 Sodium 137 (136-145) mEq/L Potassium 4.0 (3.5-4.5) mEq/L Chloride 105 (98-109) mEq/L Carbon Dioxide 25 (19-29) mEq/L BUN 15 (7-20) mg/dL Creatinine 0.69 (0.57-1.11) mg/dL Glucose 123 H (70-99) mg/dL Calcium 8.3 L (8.6-10.8) mg/dL Adrenal panel 08/18/17 Range/Units 04:05 Sodium 137 (136-145) mEq/L Potassium 4.0 (3.5-4.5) mEq/L Chloride 105 (98-109) mEq/L Carbon Dioxide 25 (19-29) mEq/L BUN 15 (7-20) mg/dL Creatinine 0.69 (0.57-1.11) mg/dL Glucose 123 H (70-99) mg/dL Calcium 8.3 L (8.6-10.8) mg/dL - Imaging Additional Studies: small bowel follow thru images and report reviewed - Attending Attestation I have personally performed a face to face evaluation on this patient. I have reviewed and agree with the care plan. History and Exam by me shows:
[2017-08-18] MEDS ORDERED: Clindamycin 600 MG/50 ML 600 MG/50 ML IV.SOLN IVPB ONE (16:34)
--- NOTE | 2017-08-18 16:36 | Anesthesia Evaluation PreOp ---
Date of Encounter: 08/18/17 Time of Encounter: 16:34 - Past History Planned Operation: exploratory lap Cardiac History: HTN Pulmonary History: Denies Any Significant HX MARINE GEOLOGIST History: Denies Any Significant HX Other Medical History: Renal (renal stones), Other (rectal CA s/p APR no chmo/ xrt) Anesthesia History: No Prior Anesthetic Complications, Past Anesthesia (partial hysterectomy, APR, colostomy) : No Alcohol Use: rarely Drug use: none Medications and Allergies Cholecalciferol (Vitamin D3) [Vitamin D3] 2,000 unit PO DAILY 06/21/16 [History] cloNIDine HCl [CloNIDine HCl] 0.1 mg PO BID 06/21/16 [History] Acetaminophen [Tylenol] 650 mg PO Q6HR PRN 10/05/16 [History] hydroCHLOROthiazide [Hydrochlorothiazide] 25 mg PO QAM 08/13/17 [History] Metoprolol Succinate 100 mg PO DAILY 08/14/17 [History] 3 Allergy/AdvReac Type Severity Reaction Status Date / Time Amoxicillin [From Augmentin] AdvReac Hives Verified 10/05/16 09:48 celecoxib [From Celebrex] AdvReac Hives Verified 10/05/16 09:48 ciprofloxacin [From Cipro] AdvReac Hives Verified 10/05/16 09:48 clavulanic acid AdvReac Hives Verified 10/05/16 09:48 [From Augmentin] penicillamine AdvReac Hives Verified 10/05/16 09:48 Sulfa (Sulfonamide AdvReac Hives Verified 10/05/16 09:48 Antibiotics) - Meds/Allergy Pre-op Review Medications Reviewed: Yes Allergies Reviewed: Yes Beta Blockers on Current Med List: Yes If Beta Blockers taken, Date/Time (Last Dose taken): today 1158hrs Anesthesia Results - Labs 08/18/17 04:05 08/18/17 04:05 - Imaging Additional studies: stress 01/24: Perfusion imaging was negative for ischemia or infarct. Pharmacologic ECG was negative for ischemia at the level of heart rate achieved. Gated EF = >70%. Anesthesia Exam Selected Entries 08/18/17 12:51 08/18/17 15:36 Temperature 98.2 F Pulse Rate 104 Respiratory Rate 18 Blood Pressure 125/83 O2 Sat by Pulse Oximetry 93 Oxygen Delivery Method Room Air Weight: 48kg NPO (# of Hours): 8 - HEENT Pupil (Motor): EOMI Mallampati: III Teeth: Poor dentition Oral Opening: Greater than 3 - MARINE GEOLOGIST LOC: Oriented MARINE GEOLOGIST Motor: Normal RUE, Normal LUE, Normal RLE, Normal LLE, Normal Face MARINE GEOLOGIST Sensory: Normal: RUE, LUE, RLE, LLE, Face - Cardiac Rhythm: Regular Murmur: None - Pulmonary Breath Sounds: bilateral Clear Respiratory Effort: Symmetrical Anesthesia Assess/Plan ASA Score: 3, 4 Modified [place] Scale for Level of Consciousness: Cooperative, oriented, and tranquil Anesthetic Plan: General Monitoring Plan: Standard Monitors Recovery Plan: PACU (Discussed with daughter and patient the high risk of patient due to age and surgery. Agrees to proceed)
[2017-08-18] MEDS ORDERED: *HR* Succinylcholine 200 MG/10 ML VIAL IVP ONE (16:41)
[2017-08-18] MEDS ORDERED: *HR* Rocuronium Bromide 50 MG/5 ML VIAL ONE (16:41)
[2017-08-18] MEDS ORDERED: Lidocaine -MPF 2% 2 ML VIAL ONE (16:41)
[2017-08-18] MEDS ORDERED: Dexamethasone 4 MG/ML VIAL ONE (16:41)
[2017-08-18] MEDS ORDERED: *HR* Etomidate 40 MG/20 ML VIAL IVP ONE (16:41)
[2017-08-18] MEDS ORDERED: Ondansetron 4 MG/2 ML VIAL ONE (16:41)
[2017-08-18] MEDS ORDERED: *HR* Propofol 200 MG/20 ML VIAL IVP ONE (16:41)
[2017-08-18] MEDS ORDERED: *HR* FentaNYL (PF) 100 MCG/2 ML VIAL ONE (16:44)
[2017-08-18] MEDS ORDERED: Lidocaine -MPF 4% 5 ML AMPUL ONE (16:47)
[2017-08-18] MEDS ORDERED: Clindamycin 900 MG/50 ML 900 MG/50 ML IV.SOLN IVPB ONE (17:46)
[2017-08-18] MEDS ORDERED: *HR* Phenylephrine 10 MG/ML VIAL ONE (18:12)
[2017-08-18] MEDS ORDERED: Neostigmine Methylsulfate 3 MG/3 ML SYRINGE ONE (18:56)
--- NOTE | 2017-08-18 19:12 | Operative Note ---
Date of procedure: 08/18/17 Pre-op diagnosis: partial small bowel obstruction Post-op diagnosis: same Procedure: Exploratory laparotomy, lysis of adhesions Complications: none immediate Anesthesia: GETA, local Local Anesthetics: 0.5% Sensorcaine HCL SubQ (cc) (30) Surgeon: Lisa Neely Shingle Carrier: Beth Fernando Shingle Carrier Other: 50 Specimen: none Condition: stable Disposition: PACU Procedure in Detail: Patient was brought to the operating suite and placed supine on the operating table. Sign in was performed and everyone was in agreement. Anesthesia was induced and patient was endotracheally intubated by anesthesia without incident. Her colostomy was emptied. Cherry catheter was placed by the circulating nurse The abdomen was prepped and draped in the usual sterile fashion. Timeout was performed and everyone was in agreement. A lower midline incision through the skin into the subcutaneous tissue was made beneath the umbilicus with a 15 blade. We dissected to the anterior abdominal wall lineal fashion with the Bovie. Ragan's were placed on either side of the fascia for retraction. We entered the abdomen with the Bovie and gentle blunt dissection. The incision was elongated proximally and distally with the Bovie. The cecum was identified and small bowel was then traced proximally. There were 5 loops of small bowel that were deep within the pelvis. Lysis of adhesions was performed for approximately 1 hour, with Metzenbaum scissors. Once the small bowel loops were released from the pelvis the small bowel was run from the terminal ileum to the ligament of Treitz. There was one small serosal tear which is and expected potential outcome of the surgery which was repaired with 3 3-0 silk Lembert stitches. Succus was moved to and fro across this area and there was no leak. A piece of Seprafilm was placed within the pelvis. The cecum which was very mobile was allowed to drop into the pelvis. Small bowel was returned to the abdomen. Milli's were placed on either side of the fascia for retraction. 2 pieces of Seprafilm were placed on the small bowel in the abdominal cavity. The fascia was closed with 2 separate #1 non-looped PDS running stitches meeting in the middle. The subcutaneous tissue was copiously irrigated with sterile saline. The subcutaneous tissue was reapproximated with 3-0 Vicryl interrupted stitches and skin was closed with ashia. 4 x 4 gauze were placed over the midline incision in the patient's colostomy appliance was changed. New 4 x 4 gauze were placed over the midline incision and secured with Medipore tape. The Cherry catheter and NG tube remained with the patient after surgery. The patient was awoken by anesthesia and extubated in the OR without incident. All lap and instrument counts were correct at the end of the case. She tolerated the procedure well and was taken to PACU in stable condition.
[2017-08-18] MEDS ORDERED: *HR* HYDROmorphone (PF) 1 MG/ML SYRINGE ONE (19:14)
[2017-08-18] MEDS: *HR* HYDROmorphone (PF) 1 MG/ML SYRINGE IVP PRN ×3 (19:15→19:33)
[2017-08-18] MEDS ORDERED: Ringers Solution, Lactated 1,000 ML IVC SCH (19:15)
[2017-08-18] MEDS ORDERED: *HR* Promethazine 25 MG/ML VIAL IVP PRN (19:15)
[2017-08-18] MEDS ORDERED: *HR* Meperidine 25 MG/ML SYRINGE IVP PRN (19:15)
[2017-08-18] MEDS ORDERED: *HR* Labetalol 20 MG/4 ML SYRINGE IVP STA (19:50)
[2017-08-18] MEDS ORDERED: Naloxone 0.4 MG/ML INJ IVP PRN (20:29)
[2017-08-18] MEDS ORDERED: Chloraseptic Spray 177 ML BOTTLE MM PRN (20:29)
--- NOTE | 2017-08-18 21:12 | Anesthesia Evaluation Post Op ---
Date of Encounter: 08/18/17 Time of Encounter: 21:11 - Vital Signs Vital Signs: Vital Signs/O2 Sat, Most Current Temp Pulse Resp BP Pulse Ox 98.8 F 104 18 116/71 99 08/18/17 20:10 08/18/17 20:10 08/18/17 20:10 08/18/17 20:10 08/18/17 20:10 - Lungs Lungs: Clear Ascult./Percussion - Airway Airway: Non-obstructed - Cardiovascular Regular Rate - Mental Status Mental Status: Alert & Oriented, Answers Appropriately - Pain Pain Scale: 0 Pain Scale used: Numeric (1 - 10) - Nausea Vomiting Nausea Vomiting: Not Present - Hydration Hydration: NPO, Cherry catheter - Discharge PostOp Status: Transfer Patient to floor
[2017-08-19] MEDS: Ondansetron 4 MG/2 ML VIAL IVP SCH ×6 (00:34→22:59)
[2017-08-19] MEDS: Acetaminophen IV 1,000 MG/100 ML INFUS..BTL IVPB SCH ×3 (00:34→19:46)
[2017-08-19] MEDS: *HR* Metoprolol 5 MG/5 ML VIAL IVP SCH ×4 (00:34→17:12)
[2017-08-19 04:31] LABS: Hematocrit 39.6 % (35.3-44.9); Mean Corpuscular HGB Conc 32.8 g/dL (31.6-35.5); Mean Corpuscular Hemoglobin 28.6 pg (28.0-33.3); Platelet Count 256 K/mcL (140-400); Red Blood Count 4.55 M/mcL (3.82-4.97); Red Cell Distribution Width 14.1 % (11.5-14.5)
[2017-08-19 04:47] LABS: BUN/Creatinine Ratio 26 (6-26); Blood Urea Nitrogen 22 mg/dL (7-20); Calcium 9.1 mg/dL (8.6-10.8); Carbon Dioxide 23 mEq/L (19-29); Chloride 108 mEq/L (98-109); Glucose 140 mg/dL (70-99); Magnesium 1.8 mg/dL (1.6-2.6); Osmolality,Calculated 298 (280-300); Potassium 4.4 mEq/L (3.5-4.5); Sodium 141 mEq/L (136-145); eGFR For African Americans > 60 (> 60); eGFR For Non-African Americans > 60 (> 60)
[2017-08-19 04:49] LABS: Lymphocytes # 0.5 K/mcL (0.6-4.6); Monocytes # 1.1 K/mcL (0.0-1.3); Neutrophils # 4.4 K/mcL (1.6-8.9)
[2017-08-19 04:50] LABS: Platelet Estimate Normal (Normal); Reactive Lymphocytes Present (Not Present)
[2017-08-19 04:53] LABS: Phosphorous 4.2 mg/dL (2.3-4.7)
[2017-08-19] MEDS ORDERED: D5% in 0.45% NACL 1,000 ML IVC SCH (07:45)
[2017-08-19] MEDS ORDERED: 0.9 % Sodium Chloride 500 ML IVC ONE (08:36)
[2017-08-19] MEDS ORDERED: Dextrose Gel 15 GM PO PRN ×2 (08:40)
[2017-08-19] MEDS ORDERED: D5% in Water 1,000 ML IVC PRN (08:40)
[2017-08-19] MEDS ORDERED: *HR* Dextrose 50 % in Water (Syg) 50 ML SYRINGE IVP PRN (08:40)
[2017-08-19] MEDS ORDERED: Lidocaine -MPF 1% 5 ML AMPUL INFILT ONE (08:41)
--- NOTE | 2017-08-19 08:59 | General Surgery Progress Note ---
<Veronica Cárdenas Ariel - Last Filed: 08/19/17 09:02> Date of Encounter: 08/19/17 Time of Encounter: 08:30 - Assessment and Plan (1) Partial small bowel obstruction Current Visit: Yes Status: Acute POD #1 Exploratory laparotomy, lysis of adhesions with Dr. Neely Bowel rest while awaiting return of bowel function IV fluids- 80ml/hour (adjust with start of TPN for total fuid rate of 80ml/hour ) 0.9NS fluid bolus 500ml now NG tube to LIWS Supportive care and pain control Cherry catheter to SD for strict I&Os PICC and start TPN today Incentive Spirometer every 1 hour while awake PPI therapy daily Out of bed to chair TID and ambulate with assistance as tolerated Repeat am labs Consult to Telecommunication Tower Technician Consult to PT/OT- requesting rehab at discharge Consult to social media content manager (2) Protein calorie malnutrition Current Visit: Yes Status: Acute PICC line placement Telecommunication Tower Technician consulted to start and manage TPN (total fluid rate 80ml/hour with MIV + TPN) SSI with every 6 hour coverage Qualifiers: Protein-calorie malnutrition severity: mild Qualified Code(s): E44.1 - Mild protein-calorie malnutrition (3) Lactose intolerance in adult Current Visit: Yes Status: Acute No lactose on trays when diet resumed (4) DVT prophylaxis Current Visit: Yes Status: Acute Heparin 5,000 units SQ twice daily for DVT propylaxis Ambulate hallways TID with assistance Subjective Patient reports: feels better, still having pain, no flatus, no bowel movement, afebrile, other (Patient is resting in bed) Objective Vital Signs - Last 8 Hours Temp Pulse Resp BP Pulse Ox 08/19/17 06:53 97.7 F 79 16 156/82 98 08/19/17 05:57 105 134/87 08/19/17 03:19 98.3 F 90 20 145/89 98 Intake and Output 08/18/17 08/19/17 08/19/17 23:59 07:59 15:59 Intake Total 200 / 200 Output Total 475 / 475 500 / 500 Balance -475 / -475 -300 / -300 Intake: IV Fluids 200 / 200 Ofirmev 1,000 mg/100 ml 1,000 200 / 200 mg In 100 ml @ 400 mls/hr IVPB Q8HR [facility] Rx#:[id number] Oral 0 / 0 Output: Stool 225 / 225 0 / 0 Estimated Blood Loss 50 / 50 Urine Amount (Catheter) 100 / 100 Catheter 350 / 350 Gastric Drainage 100 / 100 150 / 150 Other: Meal NPO Stool Consistency liquid Weight 47.8 kg Blood Glucose* 136 Patient Weight 08/19/17 23:59 Weight 47.8 kg - General physical appearance well developed, well nourished, no distress, moderate pain - Eyes normal ocular movement - ENT dry mucosa, atraumatic, normocephalic - Neck Neck exam: trachea midline - Respiratory normal respiratory effort, clear to auscultation - Cardiovascular Cardiovascular exam: Present: RRR - Abdomen Abdomen: Present: bowel sounds present (minimal, hypoactive), soft, tender ( Expected postoperative tenderness), wound (NG tube to low intermittent wall suction (150ml since midnight); ostomy is pink and moist with no flatus or stool noted) - Genitourinary other (Following catheter to straight drain with carney, yellow urine (minimal UOP noted)) - Integumentary no rash, no growths, no abnormal pigmentation - Neurologic CN 2-12 grossly intact - Psychiatric oriented to time, oriented to person, oriented to place, speech is normal, memory intact - Labs 08/19/17 03:44 08/19/17 03:44 Diabetes panel 08/19/17 Range/Units 03:44 Sodium 141 (136-145) mEq/L Potassium 4.4 (3.5-4.5) mEq/L Chloride 108 (98-109) mEq/L Carbon Dioxide 23 (19-29) mEq/L BUN 22 H (7-20) mg/dL Creatinine 0.84 (0.57-1.11) mg/dL Glucose 140 H (70-99) mg/dL Calcium 9.1 (8.6-10.8) mg/dL Calcium panel 08/19/17 Range/Units 03:44 Calcium 9.1 (8.6-10.8) mg/dL Phosphorus 4.2 D (2.3-4.7) mg/dL Pituitary panel 08/19/17 Range/Units 03:44 Sodium 141 (136-145) mEq/L Potassium 4.4 (3.5-4.5) mEq/L Chloride 108 (98-109) mEq/L Carbon Dioxide 23 (19-29) mEq/L BUN 22 H (7-20) mg/dL Creatinine 0.84 (0.57-1.11) mg/dL Glucose 140 H (70-99) mg/dL Calcium 9.1 (8.6-10.8) mg/dL Adrenal panel 08/19/17 Range/Units 03:44 Sodium 141 (136-145) mEq/L Potassium 4.4 (3.5-4.5) mEq/L Chloride 108 (98-109) mEq/L Carbon Dioxide 23 (19-29) mEq/L BUN 22 H (7-20) mg/dL Creatinine 0.84 (0.57-1.11) mg/dL Glucose 140 H (70-99) mg/dL Calcium 9.1 (8.6-10.8) mg/dL - VTE Documentation of Mechanical Device: Intermittent pneumatic compression device Consult Discharge Plan - Plan Referrals: Dudley Gómez DO [Primary Care Provider] - - Attending Attestation For this encounter, I have reviewed the MEAL ATTENDANT or PA documentation, treatment plan, and medical decision making; and I have had face to face time with this patient. <Lisa Neely - Last Filed: 08/19/17 11:24> Date of Encounter: 08/19/17 - Assessment and Plan (1) Partial small bowel obstruction Current Visit: Yes Status: Acute (2) Nausea and vomiting Current Visit: Yes Status: Acute Qualifiers: Vomiting type: unspecified Vomiting Intractability: non-intractable Qualified Code(s): R11.2 - Nausea with vomiting, unspecified (3) Abdominal pain Current Visit: No Status: Acute Qualifiers: Abdominal location: generalized Qualified Code(s): R10.84 - Generalized abdominal pain (4) Small bowel obstruction due to adhesions Current Visit: Yes Status: Acute pod #1 await return bowel function continue ngt liws daily colostomy care change midline dressing daily continue prn pain medication and scheduled ofirmev prn antiemetics PT/OT ambulate aggressive pulmonary toilet monitor UOP (5) UTI (urinary tract infection) Current Visit: Yes Status: Acute gnr, gpc in urine, will start Abx await sensitivity Qualifiers: Urinary tract infection type: acute cystitis Hematuria presence: without hematuria Qualified Code(s): N30.00 - Acute cystitis without hematuria Subjective Narrative: patient pain seems well controlled she denies nausea still having LLQ abdominal pain. little colostomy output (gastrograffin from SBFT) no air in colostomy no complaints at this time Objective Vital Signs - Last 8 Hours Temp Pulse Resp BP Pulse Ox 08/19/17 06:53 97.7 F 79 16 156/82 98 08/19/17 05:57 105 134/87 08/19/17 03:19 98.3 F 90 20 145/89 98 Intake and Output 08/18/17 08/19/17 08/19/17 23:59 07:59 15:59 Intake Total 200 / 200 485 / 485 Output Total 475 / 475 500 / 500 Balance -475 / -475 -300 / -300 485 / 485 Intake: IV Fluids 200 / 200 485 / 485 0.9 % Sodium Chloride 500 ML @ 485 / 485 1875 mls/hr IVC .Q16M [facility] Rx#: [id number] Ofirmev 1,000 mg/100 ml 1,000 200 / 200 mg In 100 ml @ 400 mls/hr IVPB Q8HR [facility] Rx#:[id number] Oral 0 / 0 Output: Stool 225 / 225 0 / 0 Estimated Blood Loss 50 / 50 Urine Amount (Catheter) 100 / 100 Catheter 350 / 350 Gastric Drainage 100 / 100 150 / 150 Other: Meal NPO Stool Consistency liquid Weight 47.8 kg Blood Glucose* 136 Patient Weight 08/19/17 23:59 Weight 47.8 kg - General physical appearance well developed, well nourished, no distress, moderate pain - Eyes normal ocular movement - ENT dry mucosa, atraumatic, normocephalic - Neck Neck exam: trachea midline - Respiratory normal expansion, clear to auscultation - Cardiovascular Cardiovascular exam: Present: RRR - Abdomen Abdomen: Present: bowel sounds present, soft, tender, wound - Incision Incision: Present: clean and dry, intact - Genitourinary other - Integumentary no rash, no growths - Neurologic CN 2-12 grossly intact - Musculoskeletal normal posture - Psychiatric oriented to time, oriented to person, oriented to place, speech is normal, memory intact - Labs 08/19/17 03:44 08/19/17 03:44 Diabetes panel 08/19/17 Range/Units 03:44 Sodium 141 (136-145) mEq/L Potassium 4.4 (3.5-4.5) mEq/L Chloride 108 (98-109) mEq/L Carbon Dioxide 23 (19-29) mEq/L BUN 22 H (7-20) mg/dL Creatinine 0.84 (0.57-1.11) mg/dL Glucose 140 H (70-99) mg/dL Calcium 9.1 (8.6-10.8) mg/dL Calcium panel 08/19/17 Range/Units 03:44 Calcium 9.1 (8.6-10.8) mg/dL Phosphorus 4.2 D (2.3-4.7) mg/dL Pituitary panel 08/19/17 Range/Units 03:44 Sodium 141 (136-145) mEq/L Potassium 4.4 (3.5-4.5) mEq/L Chloride 108 (98-109) mEq/L Carbon Dioxide 23 (19-29) mEq/L BUN 22 H (7-20) mg/dL Creatinine 0.84 (0.57-1.11) mg/dL Glucose 140 H (70-99) mg/dL Calcium 9.1 (8.6-10.8) mg/dL Adrenal panel 08/19/17 Range/Units 03:44 Sodium 141 (136-145) mEq/L Potassium 4.4 (3.5-4.5) mEq/L Chloride 108 (98-109) mEq/L Carbon Dioxide 23 (19-29) mEq/L BUN 22 H (7-20) mg/dL Creatinine 0.84 (0.57-1.11) mg/dL Glucose 140 H (70-99) mg/dL Calcium 9.1 (8.6-10.8) mg/dL - Attending Attestation I have personally performed a face to face evaluation on this patient. I have reviewed and agree with the care plan. History and Exam by me shows:
[2017-08-19] MEDS: *HR* Heparin 5,000 UNIT/ML VIAL SQ SCH ×2 (09:36→19:29)
[2017-08-19] MEDS: Pantoprazole 40 MG VIAL IVP SCH (09:36)
[2017-08-19] MEDS ORDERED: Cefepime HCl 2,000 MG in D5% in Water (Mini-Bag+) 100 ML IVPB SCH (12:00)
[2017-08-19] MEDS ORDERED: D10% in Water 500 ML IVC PRN (12:21)
[2017-08-19] MEDS: D5% in 0.45% NACL 1,000 ML IVC SCH (12:56)
[2017-08-19] MEDS: *HR* Morphine 2 MG/ML SYRINGE IVP PRN ×2 (12:59→23:03)
[2017-08-19] MEDS: Insulin LISPRO 300 UNITS/3 ML VIAL SQ SCH ×2 (13:38→19:17)
[2017-08-19] MEDS: Cefepime HCl 2,000 MG in Water for inj. (sterile) 20 ML IVP SCH (14:00)
[2017-08-19] MEDS: Vancomycin 500 MG in D5% in Water (Mini-Bag+) 100 ML IVPB SCH (14:01)
[2017-08-19] MEDS ORDERED: Clinimix E 5%-20% SOLUTION 2,000 ML with MVI, adult with vitamin K 10 ML IVC SCH (17:00)
[2017-08-19] MEDS ORDERED: Vancomycin 1,000 MG in D5% in Water 250 ML IVPB SCH (18:00)
[2017-08-20] MEDS: *HR* Metoprolol 5 MG/5 ML VIAL IVP SCH ×4 (01:17→17:29)
[2017-08-20] MEDS: Ondansetron 4 MG/2 ML VIAL IVP SCH ×6 (01:17→21:11)
[2017-08-20] MEDS: Insulin LISPRO 300 UNITS/3 ML VIAL SQ SCH ×4 (01:17→17:27)
[2017-08-20] MEDS: Acetaminophen IV 1,000 MG/100 ML INFUS..BTL IVPB SCH ×3 (01:18→16:45)
[2017-08-20] MEDS: *HR* Heparin 5,000 UNIT/ML VIAL SQ SCH ×2 (06:17→17:29)
[2017-08-20 06:33] LABS: Basophils # 0.1 K/mcL (0.0-0.2); Basophils % 0.5 %; Eosinophils # 0.1 K/mcL (0.0-0.6); Eosinophils % 0.9 %; Hematocrit 37.3 % (35.3-44.9); Immature Granulocytes % 2.4 % (0-4); Lymphocytes # 0.6 K/mcL (0.6-4.6); Lymphocytes % 6.5 %; Mean Corpuscular HGB Conc 32.2 g/dL (31.6-35.5); Mean Corpuscular Hemoglobin 28.2 pg (28.0-33.3); Mean Corpuscular Volume 87.8 fL (83.0-100.0); Mean Platelet Volume 9.9 fL (9.4-12.4); Monocytes # 1.7 K/mcL (0.0-1.3); Monocytes % 17.9 %; Neutrophils # 6.7 K/mcL (1.6-8.9); Platelet Count 265 K/mcL (140-400); Red Blood Count 4.25 M/mcL (3.82-4.97); Red Cell Distribution Width 14.1 % (11.5-14.5); Segmented Neutrophils % 71.8 %
[2017-08-20 06:51] LABS: BUN/Creatinine Ratio 38 (6-26); Blood Urea Nitrogen 26 mg/dL (7-20); Calcium 9.1 mg/dL (8.6-10.8); Carbon Dioxide 24 mEq/L (19-29); Chloride 107 mEq/L (98-109); Glucose 131 mg/dL (70-99); Magnesium 1.6 mg/dL (1.6-2.6); Osmolality,Calculated 299 (280-300); Potassium 4.1 mEq/L (3.5-4.5); Sodium 141 mEq/L (136-145); Triglycerides 91 mg/dL (< 150); eGFR For African Americans > 60 (> 60); eGFR For Non-African Americans > 60 (> 60)
[2017-08-20] MEDS: Pantoprazole 40 MG VIAL IVP SCH (08:48)
--- NOTE | 2017-08-20 10:54 | General Surgery Progress Note ---
Date of Encounter: 08/20/17 Time of Encounter: 10:48 - Assessment and Plan (1) Partial small bowel obstruction Current Visit: Yes Status: Acute Patient is POD2 from an exploratory celiotomy with SHEMAR. NGT in place and functioning. Noted small amount of fluid in ostomy. Will start dressing changes today. Continue with ice chips. Continue with TPN. PT/OT consultated. Continue with nieto catheter for accurate I&Os. Continue with NGT to LIWS today. If patient progress, then will consider change to gravity drainage. (2) Protein calorie malnutrition Current Visit: Yes Status: Acute On TPN Awaiting return of bowel function. Qualifiers: Protein-calorie malnutrition severity: mild Qualified Code(s): E44.1 - Mild protein-calorie malnutrition Subjective Patient reports: no new complaints, other (The patient does admit to some occassional nausea. No vomiting. Ostomy with mild fluid. Tolerating pain with IV pain medication.) Objective Vital Signs - Last 8 Hours Temp Pulse Resp BP Pulse Ox 08/20/17 03:30 97.9 F 102 16 157/82 98 Intake and Output 08/19/17 08/20/17 08/20/17 23:59 07:59 15:59 Intake Total 0 / 0 100 / 100 Output Total 425 / 425 0 / 0 Balance -425 / -425 100 / 100 Intake: IV Fluids 100 / 100 Ofirmev 1,000 mg/100 ml 1,000 100 / 100 mg In 100 ml @ 400 mls/hr IVPB Q8HR [facility] Rx#:[id number] Oral 0 / 0 0 / 0 Output: Urine 0 / 0 0 / 0 Stool 75 / 75 Catheter 200 / 200 Gastric Drainage 150 / 150 Other: Meal NPO Dinner Weight 48.1 kg Blood Glucose* 152 149 Patient Weight 08/20/17 23:59 Weight 48.1 kg - General physical appearance well nourished, no distress - Abdomen Abdomen: Present: bowel sounds present (Scant bowel sounds.), soft, tender ( Incisional pain to palpation. LLQ ostomy with minimum succus present. Minimal air.) - Incision Incision: Present: clean and dry, intact (No erythema, no opening. No drainage. ) - Labs 08/20/17 06:00 08/20/17 06:00 Diabetes panel 08/20/17 Range/Units 06:00 Sodium 141 (136-145) mEq/L Potassium 4.1 (3.5-4.5) mEq/L Chloride 107 (98-109) mEq/L Carbon Dioxide 24 (19-29) mEq/L BUN 26 H (7-20) mg/dL Creatinine 0.69 (0.57-1.11) mg/dL Glucose 131 H (70-99) mg/dL Calcium 9.1 (8.6-10.8) mg/dL Triglycerides 91 (< 150) mg/dL Calcium panel 08/20/17 Range/Units 06:00 Calcium 9.1 (8.6-10.8) mg/dL Phosphorus 2.0 L D (2.3-4.7) mg/dL Pituitary panel 08/20/17 Range/Units 06:00 Sodium 141 (136-145) mEq/L Potassium 4.1 (3.5-4.5) mEq/L Chloride 107 (98-109) mEq/L Carbon Dioxide 24 (19-29) mEq/L BUN 26 H (7-20) mg/dL Creatinine 0.69 (0.57-1.11) mg/dL Glucose 131 H (70-99) mg/dL Calcium 9.1 (8.6-10.8) mg/dL Adrenal panel 08/20/17 Range/Units 06:00 Sodium 141 (136-145) mEq/L Potassium 4.1 (3.5-4.5) mEq/L Chloride 107 (98-109) mEq/L Carbon Dioxide 24 (19-29) mEq/L BUN 26 H (7-20) mg/dL Creatinine 0.69 (0.57-1.11) mg/dL Glucose 131 H (70-99) mg/dL Calcium 9.1 (8.6-10.8) mg/dL - VTE Documentation of Mechanical Device: Intermittent pneumatic compression device Consult Discharge Plan - Plan Referrals: Dudley Gómez DO [Primary Care Provider] -
[2017-08-20] MEDS: Cefepime HCl 2,000 MG in Water for inj. (sterile) 20 ML IVP SCH (13:51)
[2017-08-20] MEDS: Vancomycin 500 MG in D5% in Water (Mini-Bag+) 100 ML IVPB SCH (15:32)
[2017-08-20] MEDS: D5% in 0.45% NACL 1,000 ML IVC SCH (15:33)
[2017-08-20] MEDS ORDERED: Clinimix E 5%-20% SOLUTION 2,000 ML with MVI, adult with vitamin K 10 ML IVC SCH (17:00)
[2017-08-20] MEDS ORDERED: *HR* LORazepam 2 MG/ML VIAL IVP PRN (18:51)
[2017-08-21] MEDS: *HR* Morphine 2 MG/ML SYRINGE IVP PRN ×2 (04:56→19:01)
[2017-08-21] MEDS: Ondansetron 4 MG/2 ML VIAL IVP SCH ×5 (05:57→16:37)
[2017-08-21] MEDS: *HR* Heparin 5,000 UNIT/ML VIAL SQ SCH ×2 (05:58→19:01)
[2017-08-21] MEDS: Insulin LISPRO 300 UNITS/3 ML VIAL SQ SCH ×4 (05:58→19:02)
[2017-08-21] MEDS: *HR* Metoprolol 5 MG/5 ML VIAL IVP SCH ×4 (05:58→19:01)
[2017-08-21] MEDS: Acetaminophen IV 1,000 MG/100 ML INFUS..BTL IVPB SCH ×3 (06:13→17:37)
[2017-08-21 06:30] LABS: BUN/Creatinine Ratio 37 (6-26); Blood Urea Nitrogen 22 mg/dL (7-20); Calcium 8.7 mg/dL (8.6-10.8); Carbon Dioxide 24 mEq/L (19-29); Chloride 102 mEq/L (98-109); Glucose 112 mg/dL (70-99); Magnesium 1.2 mg/dL (1.6-2.6); Osmolality,Calculated 286 (280-300); Phosphorous 2.2 mg/dL (2.3-4.7); Potassium 3.3 mEq/L (3.5-4.5); Sodium 136 mEq/L (136-145); eGFR For African Americans > 60 (> 60); eGFR For Non-African Americans > 60 (> 60)
[2017-08-21] MEDS: Pantoprazole 40 MG VIAL IVP SCH (09:31)
--- NOTE | 2017-08-21 11:05 | General Surgery Progress Note ---
Date of Encounter: 08/21/17 Time of Encounter: 11:04 - Assessment and Plan (1) Partial small bowel obstruction Current Visit: Yes Status: Acute Patient is POD3 from an exploratory celiotomy with SHEMAR. NGT in place . Ostomy with scant air and some fluid. Will place NGT to gravity drainage. Continue with ice chips. Continue with TPN. PT/OT consultated. Continue with nieto catheter for accurate I&Os. (2) Protein calorie malnutrition Current Visit: Yes Status: Acute On TPN Awaiting return of bowel function. Qualifiers: Protein-calorie malnutrition severity: mild Qualified Code(s): E44.1 - Mild protein-calorie malnutrition (3) Hypokalemia Current Visit: Yes Status: Acute Potassium of 3.3. Will replace. Follow BMP. Subjective Patient reports: other (Denies any nausea. Patient is not certain whether she has had any flatus. No BM. NGT in place.) Objective Vital Signs - Last 8 Hours Temp Pulse Resp BP Pulse Ox 08/21/17 05:03 97.8 F 108 18 133/83 95 Intake and Output 08/20/17 08/21/17 08/21/17 23:59 07:59 15:59 Intake Total 100 / 100 0 / 0 Output Total 750 / 750 700 / 700 Balance -650 / -650 -700 / -700 Intake: IV Fluids 100 / 100 Ofirmev 1,000 mg/100 ml 1,000 100 / 100 mg In 100 ml @ 400 mls/hr IVPB Q8HR [facility] Rx#:[id number] Oral 0 / 0 0 / 0 Output: Stool 0 / 0 Catheter 750 / 750 400 / 400 Gastric Drainage 300 / 300 Other: Blood Glucose* 133 124 - General physical appearance well nourished, no distress - Abdomen Abdomen: Present: bowel sounds present (Scant), soft, tender (Mild incisional pain. Incision CDI.) - Labs 08/20/17 06:00 08/21/17 05:45 Diabetes panel 08/21/17 Range/Units 05:45 Sodium 136 (136-145) mEq/L Potassium 3.3 L (3.5-4.5) mEq/L Chloride 102 (98-109) mEq/L Carbon Dioxide 24 (19-29) mEq/L BUN 22 H (7-20) mg/dL Creatinine 0.59 (0.57-1.11) mg/dL Glucose 112 H (70-99) mg/dL Calcium 8.7 (8.6-10.8) mg/dL Calcium panel 08/21/17 Range/Units 05:45 Calcium 8.7 (8.6-10.8) mg/dL Phosphorus 2.2 L (2.3-4.7) mg/dL Pituitary panel 08/21/17 Range/Units 05:45 Sodium 136 (136-145) mEq/L Potassium 3.3 L (3.5-4.5) mEq/L Chloride 102 (98-109) mEq/L Carbon Dioxide 24 (19-29) mEq/L BUN 22 H (7-20) mg/dL Creatinine 0.59 (0.57-1.11) mg/dL Glucose 112 H (70-99) mg/dL Calcium 8.7 (8.6-10.8) mg/dL Adrenal panel 08/21/17 Range/Units 05:45 Sodium 136 (136-145) mEq/L Potassium 3.3 L (3.5-4.5) mEq/L Chloride 102 (98-109) mEq/L Carbon Dioxide 24 (19-29) mEq/L BUN 22 H (7-20) mg/dL Creatinine 0.59 (0.57-1.11) mg/dL Glucose 112 H (70-99) mg/dL Calcium 8.7 (8.6-10.8) mg/dL - VTE Documentation of Mechanical Device: Intermittent pneumatic compression device Consult Discharge Plan - Plan Referrals: Dudley Gómez DO [Primary Care Provider] -
[2017-08-21] MEDS: Cefepime HCl 2,000 MG in Water for inj. (sterile) 20 ML IVP SCH (12:46)
[2017-08-21] MEDS ORDERED: Clinimix E 5%-20% SOLUTION 2,000 ML with MVI, adult with vitamin K 10 ML IVC SCH (17:00)
[2017-08-21] MEDS ORDERED: Vancomycin 500 MG in D5% in Water (Mini-Bag+) 100 ML IVPB SCH ×2 (17:00)
[2017-08-22] MEDS: Ondansetron 4 MG/2 ML VIAL IVP SCH ×7 (00:22→20:44)
[2017-08-22] MEDS: Insulin LISPRO 300 UNITS/3 ML VIAL SQ SCH ×4 (00:51→17:56)
[2017-08-22] MEDS: *HR* Morphine 2 MG/ML SYRINGE IVP PRN ×3 (00:53→20:44)
[2017-08-22] MEDS: *HR* Metoprolol 5 MG/5 ML VIAL IVP SCH ×4 (00:57→17:24)
[2017-08-22] MEDS: Acetaminophen IV 1,000 MG/100 ML INFUS..BTL IVPB SCH (01:50)
[2017-08-22] MEDS: *HR* Heparin 5,000 UNIT/ML VIAL SQ SCH ×2 (05:14→17:24)
[2017-08-22 06:22] LABS: BUN/Creatinine Ratio 41 (6-26); Blood Urea Nitrogen 24 mg/dL (7-20); Calcium 8.7 mg/dL (8.6-10.8); Carbon Dioxide 27 mEq/L (19-29); Chloride 100 mEq/L (98-109); Glucose 88 mg/dL (70-99); Magnesium 1.4 mg/dL (1.6-2.6); Osmolality,Calculated 281 (280-300); Phosphorous 2.7 mg/dL (2.3-4.7); Potassium 3.8 mEq/L (3.5-4.5); Sodium 134 mEq/L (136-145); eGFR For African Americans > 60 (> 60); eGFR For Non-African Americans > 60 (> 60)
[2017-08-22] MEDS ORDERED: Aminoglycoside Consult 1 EACH MC ONE (07:48)
--- NOTE | 2017-08-22 09:12 | General Surgery Progress Note ---
Date of Encounter: 08/22/17 Time of Encounter: 08:45 - Assessment and Plan (1) Partial small bowel obstruction Current Visit: Yes Status: Acute pod 4 ex lap jennifer continue conservative management until better return of bowel function ice chips/popcicle prn pain control gi/dvt prophylaxis OOB to chair bid TPN (2) Small bowel obstruction due to adhesions Current Visit: Yes Status: Acute pod 4 ex lap jennifer continue conservative management until better return of bowel function ice chips/popcicle prn pain control gi/dvt prophylaxis OOB to chair bid TPN (3) UTI (urinary tract infection) Current Visit: Yes Status: Acute on cefepime and vanco cultures have Staph and Corynebacterium - sensitivity pending Qualifiers: Urinary tract infection type: acute cystitis Hematuria presence: without hematuria Qualified Code(s): N30.00 - Acute cystitis without hematuria (4) Hypertension Current Visit: Yes Status: Chronic continue beta=bradley, BP wnl Qualifiers: Hypertension type: essential hypertension Qualified Code(s): I10 - Essential (primary) hypertension (5) Protein calorie malnutrition Current Visit: Yes Status: Acute continue TPN until able to take in adequate po intake Qualifiers: Protein-calorie malnutrition severity: mild Qualified Code(s): E44.1 - Mild protein-calorie malnutrition Subjective Narrative: no nausea unsure if flatus in colostomy appliance some liquid stool in ostomy pain well controlled Objective Vital Signs - Last 8 Hours Temp Pulse Resp BP Pulse Ox 08/22/17 07:45 97.9 F 100 18 137/84 97 08/22/17 04:58 97.4 F L 104 15 148/76 96 08/22/17 03:16 97.5 F L 101 16 124/84 96 Intake and Output 08/21/17 08/22/17 08/22/17 23:59 07:59 15:59 Intake Total 100 / 100 100 / 100 Output Total 250 / 250 700 / 700 Balance -150 / -150 -600 / -600 Intake: IV Fluids 100 / 100 100 / 100 Ofirmev 1,000 mg/100 ml 1,000 100 / 100 100 / 100 mg In 100 ml @ 400 mls/hr IVPB Q8HR [facility] Rx#:[id number] Oral 0 / 0 0 / 0 Output: Catheter 250 / 250 200 / 200 Gastric Drainage 0 / 0 500 / 500 Other: Blood Glucose* 137 - General physical appearance well developed, well nourished, no distress - Eyes PERRL, normal ocular movement - ENT normal mucosa, normocephalic - Neck Neck exam: trachea midline - Respiratory normal expansion, normal respiratory effort - Cardiovascular Cardiovascular exam: Present: tachycardia - Abdomen Abdomen: Present: soft, tender (appropriate postop tenderness). Absent: bowel sounds present - Incision Incision: Present: clean and dry, intact - Genitourinary other (nieto in place) - Integumentary no growths - Neurologic normal coordination - Musculoskeletal normal posture - Psychiatric oriented to time, oriented to person, oriented to place, speech is normal, memory intact - Labs 08/20/17 06:00 08/22/17 05:30 Diabetes panel 08/22/17 Range/Units 05:30 Sodium 134 L (136-145) mEq/L Potassium 3.8 (3.5-4.5) mEq/L Chloride 100 (98-109) mEq/L Carbon Dioxide 27 (19-29) mEq/L BUN 24 H (7-20) mg/dL Creatinine 0.58 (0.57-1.11) mg/dL Glucose 88 (70-99) mg/dL Calcium 8.7 (8.6-10.8) mg/dL Calcium panel 08/22/17 Range/Units 05:30 Calcium 8.7 (8.6-10.8) mg/dL Phosphorus 2.7 (2.3-4.7) mg/dL Pituitary panel 08/22/17 Range/Units 05:30 Sodium 134 L (136-145) mEq/L Potassium 3.8 (3.5-4.5) mEq/L Chloride 100 (98-109) mEq/L Carbon Dioxide 27 (19-29) mEq/L BUN 24 H (7-20) mg/dL Creatinine 0.58 (0.57-1.11) mg/dL Glucose 88 (70-99) mg/dL Calcium 8.7 (8.6-10.8) mg/dL Adrenal panel 08/22/17 Range/Units 05:30 Sodium 134 L (136-145) mEq/L Potassium 3.8 (3.5-4.5) mEq/L Chloride 100 (98-109) mEq/L Carbon Dioxide 27 (19-29) mEq/L BUN 24 H (7-20) mg/dL Creatinine 0.58 (0.57-1.11) mg/dL Glucose 88 (70-99) mg/dL Calcium 8.7 (8.6-10.8) mg/dL - VTE Documentation of Mechanical Device: Intermittent pneumatic compression device Consult Discharge Plan - Plan Referrals: Dudley Gómez DO [Primary Care Provider] -
[2017-08-22] MEDS: Pantoprazole 40 MG VIAL IVP SCH (09:45)
[2017-08-22] MEDS: Cefepime HCl 2,000 MG in Water for inj. (sterile) 20 ML IVP SCH (13:40)
[2017-08-22] MEDS: D5% in 0.45% NACL 1,000 ML IVC SCH (14:06)
[2017-08-22] MEDS ORDERED: Clinimix E 5%-20% SOLUTION 2,000 ML with MVI, adult with vitamin K 10 ML IVC SCH (17:00)
[2017-08-22] MEDS ORDERED: Doxycycline 100 MG in 0.9 % Sodium Chloride Mini Bag 100 ML IVPB SCH (18:00)
[2017-08-22] MEDS: Metoclopramide 10 MG/2 ML VIAL IVP SCH (18:19)
[2017-08-23] MEDS: Insulin LISPRO 300 UNITS/3 ML VIAL SQ SCH ×4 (00:35→18:02)
[2017-08-23] MEDS: Ondansetron 4 MG/2 ML VIAL IVP SCH ×6 (00:37→22:07)
[2017-08-23] MEDS: Metoclopramide 10 MG/2 ML VIAL IVP SCH ×5 (00:37→23:47)
[2017-08-23] MEDS: *HR* Metoprolol 5 MG/5 ML VIAL IVP SCH ×5 (00:37→23:47)
[2017-08-23] MEDS: *HR* Morphine 2 MG/ML SYRINGE IVP PRN ×4 (00:39→19:44)
[2017-08-23 05:09] LABS: Magnesium 1.8 mg/dL (1.6-2.6); Phosphorous 3.1 mg/dL (2.3-4.7)
[2017-08-23] MEDS: *HR* Heparin 5,000 UNIT/ML VIAL SQ SCH ×2 (06:20→18:16)
[2017-08-23] MEDS ORDERED: Doxycycline 100 MG in 0.9 % Sodium Chloride 150 ML IVPB SCH (07:00)
[2017-08-23] MEDS: Pantoprazole 40 MG VIAL IVP SCH (08:51)
--- NOTE | 2017-08-23 10:15 | General Surgery Progress Note ---
<Veronica Cárdenas Ariel - Last Filed: 08/23/17 10:37> Date of Encounter: 08/23/17 Time of Encounter: 10:00 - Assessment and Plan (1) Partial small bowel obstruction Current Visit: Yes Status: Acute POD #5 Exploratory laparotomy, lysis of adhesions with Dr. Neely Bowel rest while awaiting return of bowel function Continue TPN NG tube to LIWS while awaiting return of bowel function Supportive care and pain control Incentive Spirometer every 1 hour while awake PPI therapy daily Out of bed to chair TID and ambulate with assistance as tolerated Repeat am labs Continue PT/OT for mobilization- requesting rehab at discharge 2V abdominal x-ray ordered Check am labs (2) Protein calorie malnutrition Current Visit: Yes Status: Acute Baseball Glove Stuffer following for management of TPN (total fluid rate 80ml/hour with MIV + TPN) Continue TPN while awaiting return of bowel function SSI with every 6 hour coverage Qualifiers: Protein-calorie malnutrition severity: moderate Qualified Code(s): E44.0 - Moderate protein-calorie malnutrition (3) Ileus, postoperative Current Visit: Yes Status: Acute Patient started on Reglan 08/22/17 Continue NG tube while awaiting return of bowel function Continue TPN while awaiting return of bowel function 2V abdominal x-ray ordered (4) Lactose intolerance in adult Current Visit: Yes Status: Acute No lactose on trays when diet resumed (5) DVT prophylaxis Current Visit: Yes Status: Acute Heparin 5,000 units SQ twice daily for DVT propylaxis Ambulate hallways TID with assistance Subjective Patient reports: no new complaints, still having pain, voiding w/o difficulty, flatus, bowel movement (small amount of liquid, green stool in ostomy bag), afebrile, other (Patient resting comfortably) Objective Vital Signs - Last 8 Hours Temp Pulse Resp BP Pulse Ox 08/23/17 07:21 98.3 F 101 16 108/71 95 08/23/17 05:01 102 100/68 08/23/17 02:58 97.6 F 107 17 104/70 96 Intake and Output 08/22/17 08/23/17 08/23/17 23:59 07:59 15:59 Intake Total 100 / 100 250 / 250 Output Total 300 / 300 300 / 300 Balance -200 / -200 -50 / -50 Intake: IV Fluids 100 / 100 250 / 250 Doxycycline 100 MG In 0.9 % 100 / 100 Sodium Chloride (Mini-Bag +) 100 ML @ 100 mls/hr IVPB Q12HR [facility] Rx#:[id number] Intralipid 20% 250 ML @ 21 mls/ 250 / 250 hr IVPB MoWeFr@1700 [facility] Rx#: [id number] Output: Urine 300 / 300 300 / 300 Stool 0 / 0 Gastric Drainage 0 / 0 Other: Stool Consistency liquid Stool Color Green Black Weight 48.6 kg Blood Glucose* 142 113 Patient Weight 08/23/17 23:59 Weight 48.6 kg - General physical appearance well developed, no distress - Eyes normal ocular movement - ENT dry mucosa, atraumatic, normocephalic - Neck Neck exam: trachea midline - Respiratory normal respiratory effort, clear to auscultation - Cardiovascular Cardiovascular exam: Present: irregular rhythm - Abdomen Abdomen: Present: bowel sounds present (minimal, hypoactive), soft, tender ( expected), wound (NG tube to LIWS (400ml bilious drainage since midnight); Ostomy with small amount of flatus and liquid, green stool) - Incision Incision: Present: clean and dry, intact - Neurologic CN 2-12 grossly intact - Musculoskeletal other (moderate deconditioning) - Psychiatric oriented to person, oriented to place, memory intact - Labs 08/20/17 06:00 08/22/17 05:30 Calcium panel 08/23/17 Range/Units 04:46 Phosphorus 3.1 (2.3-4.7) mg/dL - VTE Documentation of Mechanical Device: Intermittent pneumatic compression device Consult Discharge Plan - Plan Referrals: Dudley Gómez DO [Primary Care Provider] - - Attending Attestation For this encounter, I have reviewed the INSURANCE RISK SURVEYOR or PA documentation, treatment plan, and medical decision making; and I have had face to face time with this patient. <Lisa Neely - Last Filed: 08/23/17 18:05> Date of Encounter: 08/23/17 Time of Encounter: 14:20 - Assessment and Plan (1) Partial small bowel obstruction Current Visit: Yes Status: Acute (2) Small bowel obstruction due to adhesions Current Visit: Yes Status: Acute pod 5 ex lap jennifer patient without any appreciable bowel flatus or stool, continue conservative management currently:ngt, TPN, prn pain control PT/OT OOB to chair BID ambulate gi/dvt prophylaxis continue abx for uti ok ice chips prn antiemetics if needed (3) UTI (urinary tract infection) Current Visit: Yes Status: Acute being treated with abx on IV doxycycline for staph, pending sensitivity for corynebacterium Qualifiers: Urinary tract infection type: acute cystitis Hematuria presence: without hematuria Qualified Code(s): N30.00 - Acute cystitis without hematuria (4) Hypertension Current Visit: Yes Status: Chronic continue iv lopressor, normotensive, monitor Qualifiers: Hypertension type: essential hypertension Qualified Code(s): I10 - Essential (primary) hypertension (5) Protein calorie malnutrition Current Visit: Yes Status: Acute continue tpn Qualifiers: Protein-calorie malnutrition severity: moderate Qualified Code(s): E44.0 - Moderate protein-calorie malnutrition Subjective Patient reports: still having pain, pain is less, voiding w/o difficulty, bowel movement, afebrile Objective Vital Signs - Last 8 Hours Temp Pulse Resp BP Pulse Ox 08/23/17 14:56 97.4 F L 107 17 115/63 96 08/23/17 11:48 97.4 F L 102 18 139/81 95 Intake and Output 08/23/17 08/23/17 08/23/17 07:59 15:59 23:59 Intake Total 250 / 250 Output Total 300 / 300 700 / 700 Balance -50 / -50 -700 / -700 Intake: IV Fluids 250 / 250 Intralipid 20% 250 ML @ 21 mls/ 250 / 250 hr IVPB MoWeFr@1700 [facility] Rx#: [id number] Output: Urine 300 / 300 300 / 300 Stool 0 / 0 0 / 0 Gastric Drainage 0 / 0 400 / 400 Other: Meal NPO Stool Consistency liquid Stool Color Green Black Weight 48.6 kg Blood Glucose* 113 118 111 Patient Weight 08/23/17 23:59 Weight 48.6 kg - General physical appearance well developed, no distress - Eyes PERRL, normal ocular movement - ENT normal mucosa, atraumatic, normocephalic - Neck Neck exam: trachea midline - Respiratory normal expansion, normal respiratory effort, clear to auscultation - Abdomen Abdomen: Present: bowel sounds present, soft, tender (expected post op tenderness), wound. Absent: guarding, rebound - Incision Incision: Present: clean and dry, intact - Integumentary no rash, no growths - Neurologic CN 2-12 grossly intact - Musculoskeletal normal posture - Psychiatric oriented to time, oriented to person, oriented to place, memory intact - Labs 08/20/17 06:00 08/22/17 05:30 Calcium panel 08/23/17 Range/Units 04:46 Phosphorus 3.1 (2.3-4.7) mg/dL - Imaging Abdominal x-ray: report reviewed, image reviewed - Attending Attestation I have personally performed a face to face evaluation on this patient. I have reviewed and agree with the care plan. History and Exam by me shows:
[2017-08-23] MEDS ORDERED: Clinimix E 5%-20% SOLUTION 2,000 ML with MVI, adult with vitamin K 10 ML IVC SCH (17:00)
[2017-08-23] MEDS ORDERED: Doxycycline 100 MG in 0.9 % Sodium Chloride Mini Bag 100 ML IVPB SCH (19:00)
[2017-08-23] MEDS: Doxycycline 100 MG in 0.9 % Sodium Chloride 100 ML IVPB SCH (22:25)
[2017-08-24] MEDS: *HR* Morphine 2 MG/ML SYRINGE IVP PRN ×4 (03:02→22:18)
[2017-08-24] MEDS: Metoclopramide 10 MG/2 ML VIAL IVP SCH ×3 (06:30→17:00)
[2017-08-24] MEDS: Ondansetron 4 MG/2 ML VIAL IVP SCH ×6 (06:31→22:18)
[2017-08-24] MEDS: *HR* Heparin 5,000 UNIT/ML VIAL SQ SCH ×2 (06:31→17:06)
[2017-08-24] MEDS: *HR* Metoprolol 5 MG/5 ML VIAL IVP SCH ×3 (06:31→17:01)
[2017-08-24] MEDS: Insulin LISPRO 300 UNITS/3 ML VIAL SQ SCH ×4 (06:49→17:30)
[2017-08-24 07:08] LABS: Hemoglobin 10.9 g/dL (11.5-15.4); Mean Corpuscular Hemoglobin 28.6 pg (28.0-33.3); Mean Corpuscular Volume 86.6 fL (83.0-100.0); Mean Platelet Volume 9.9 fL (9.4-12.4); Platelet Count 270 K/mcL (140-400); Red Blood Count 3.81 M/mcL (3.82-4.97); Red Cell Distribution Width 13.7 % (11.5-14.5)
[2017-08-24 07:28] LABS: BUN/Creatinine Ratio 37 (6-26); Blood Urea Nitrogen 22 mg/dL (7-20); Calcium 8.6 mg/dL (8.6-10.8); Carbon Dioxide 28 mEq/L (19-29); Chloride 100 mEq/L (98-109); Glucose 88 mg/dL (70-99); Magnesium 1.5 mg/dL (1.6-2.6); Osmolality,Calculated 279 (280-300); Phosphorous 2.9 mg/dL (2.3-4.7); Potassium 3.7 mEq/L (3.5-4.5); Sodium 133 mEq/L (136-145); eGFR For African Americans > 60 (> 60); eGFR For Non-African Americans > 60 (> 60)
[2017-08-24 07:52] LABS: Lymphocytes # 1.6 K/mcL (0.6-4.6); Monocytes # 1.6 K/mcL (0.0-1.3); Neutrophils # 8.8 K/mcL (1.6-8.9); Reactive Lymphocytes Present (Not Present)
[2017-08-24 07:53] LABS: Platelet Estimate Normal (Normal); Toxic Granulation Present (Not Present)
[2017-08-24] MEDS: Pantoprazole 40 MG VIAL IVP SCH (08:08)
[2017-08-24] MEDS: Doxycycline 100 MG in 0.9 % Sodium Chloride 100 ML IVPB SCH (08:09)
--- NOTE | 2017-08-24 11:05 | General Surgery Progress Note ---
Date of Encounter: 08/24/17 Time of Encounter: 11:00 - Assessment and Plan (1) Partial small bowel obstruction Current Visit: Yes Status: Acute POD #6 Exploratory laparotomy, lysis of adhesions with Dr. Neely Bowel rest while awaiting return of bowel function Continue TPN NG tube to LIWS while awaiting return of bowel function Supportive care and pain control Incentive Spirometer every 1 hour while awake PPI therapy daily Out of bed to chair TID and ambulate with assistance as tolerated Repeat am labs Continue PT/OT for mobilization- requesting rehab at discharge CT of abdomen/pelvis today with PO contrast only (elevated WBC with bandemia and tachycardia) Check am labs (2) Protein calorie malnutrition Current Visit: Yes Status: Acute High [employer] Foreign Language Tutor following for management of TPN (total fluid rate 80ml/hour with MIV + TPN) Continue TPN while awaiting return of bowel function SSI with every 6 hour coverage Qualifiers: Protein-calorie malnutrition severity: moderate Qualified Code(s): E44.0 - Moderate protein-calorie malnutrition (3) Ileus, postoperative Current Visit: Yes Status: Acute Patient started on Reglan 08/22/17 Continue NG tube while awaiting return of bowel function Continue TPN while awaiting return of bowel function CT of abdomen/pelvis with PO contrast only today (4) Leukocytosis Current Visit: Yes Status: Acute WBC- 13,000 Bandemia- 10 CT scan of abdomen/pelvis with PO contrast only today Qualifiers: Leukocytosis type: bandemia Qualified Code(s): D72.825 - Bandemia (5) Lactose intolerance in adult Current Visit: Yes Status: Acute No lactose on trays when diet resumed (6) UTI (urinary tract infection) Current Visit: Yes Status: Acute IV doxycyline Qualifiers: Urinary tract infection type: acute cystitis Hematuria presence: without hematuria Qualified Code(s): N30.00 - Acute cystitis without hematuria (7) Hypomagnesemia Current Visit: Yes Status: Acute Replaced per Dr. Neely Repeat am labs (8) DVT prophylaxis Current Visit: Yes Status: Acute Heparin 5,000 units SQ twice daily for DVT propylaxis Ambulate hallways TID with assistance Subjective Patient reports: no new complaints, still having pain (back pain today after walking and controlled incisional pain), voiding w/o difficulty, no flatus, bowel movement (small amount of bilious drainage noted in ostomy bag (unchanged from 08/23/17)), afebrile, other (Patient ambulated in the hallway with assistance this morning) Objective Vital Signs - Last 8 Hours Temp Pulse Resp BP Pulse Ox 08/24/17 10:28 97.7 F 97 15 128/76 92 08/24/17 08:09 98.0 F 97 16 101/60 96 08/24/17 03:57 97.8 F 112 16 118/79 98 Intake and Output 08/23/17 08/24/17 08/24/17 23:59 07:59 15:59 Intake Total 100 / 100 0 / 0 0 / 0 Output Total 0 / 0 550 / 550 825 / 825 Balance 100 / 100 -550 / -550 -825 / -825 Intake: IV Fluids 100 / 100 Doxycycline 100 MG In 0.9 % 100 / 100 Sodium Chloride 100 ML @ 100 mls/hr IVPB Q12HR [facility] Rx#: [id number] Oral 0 / 0 0 / 0 0 / 0 Output: Urine 0 / 0 550 / 550 400 / 400 Stool 0 / 0 Gastric Drainage 425 / 425 Other: Meal NPO NPO Percent of Meal Consumed 0% Blood Glucose* 104 101 - General physical appearance well developed, no distress - Eyes normal ocular movement - ENT dry mucosa, atraumatic, normocephalic - Neck Neck exam: trachea midline - Respiratory normal respiratory effort, clear to auscultation - Cardiovascular Cardiovascular exam: Present: tachycardia, murmurs - Abdomen Abdomen: Present: soft, tender (expected post-operative tenderness), wound ( Ostomy is pink and moist with small amount of bilious drainage (unchanged from yesterday); NG to LIWS with 425ml of bilious drainage noted over the past 24 hours) - Incision Incision: Present: clean and dry, intact - Neurologic CN 2-12 grossly intact - Psychiatric oriented to time, oriented to person, oriented to place, speech is normal, memory intact - Labs 08/24/17 07:01 08/24/17 07:01 Diabetes panel 08/24/17 Range/Units 07:01 Sodium 133 L (136-145) mEq/L Potassium 3.7 (3.5-4.5) mEq/L Chloride 100 (98-109) mEq/L Carbon Dioxide 28 (19-29) mEq/L BUN 22 H (7-20) mg/dL Creatinine 0.60 (0.57-1.11) mg/dL Glucose 88 (70-99) mg/dL Calcium 8.6 (8.6-10.8) mg/dL Calcium panel 08/24/17 Range/Units 07:01 Calcium 8.6 (8.6-10.8) mg/dL Phosphorus 2.9 (2.3-4.7) mg/dL Pituitary panel 08/24/17 Range/Units 07:01 Sodium 133 L (136-145) mEq/L Potassium 3.7 (3.5-4.5) mEq/L Chloride 100 (98-109) mEq/L Carbon Dioxide 28 (19-29) mEq/L BUN 22 H (7-20) mg/dL Creatinine 0.60 (0.57-1.11) mg/dL Glucose 88 (70-99) mg/dL Calcium 8.6 (8.6-10.8) mg/dL Adrenal panel 08/24/17 Range/Units 07:01 Sodium 133 L (136-145) mEq/L Potassium 3.7 (3.5-4.5) mEq/L Chloride 100 (98-109) mEq/L Carbon Dioxide 28 (19-29) mEq/L BUN 22 H (7-20) mg/dL Creatinine 0.60 (0.57-1.11) mg/dL Glucose 88 (70-99) mg/dL Calcium 8.6 (8.6-10.8) mg/dL Microbiology 08/16/17 22:35 Urine Culture - Preliminary Urine,Catheterized Staphylococcus haemolyticus Corynebcaterium minutissimum - VTE Documentation of Mechanical Device: Intermittent pneumatic compression device Consult Discharge Plan - Plan Referrals: Dudley Gómez DO [Primary Care Provider] - - Attending Attestation For this encounter, I have reviewed the NURSING CLERK or PA documentation, treatment plan, and medical decision making; and I have had face to face time with this patient.
--- NOTE | 2017-08-24 13:02 | Electrocardiograph Report ---
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
[2017-08-24] MEDS ORDERED: Clinimix E 5%-20% SOLUTION 2,000 ML with MVI, adult with vitamin K 10 ML, Magnesium S... IVC SCH (17:00)
[2017-08-24] MEDS: Doxycycline 100 MG in 0.9 % Sodium Chloride 150 ML IVPB SCH (17:30)
[2017-08-24] MEDS ORDERED: Doxycycline 100 MG in 0.9 % Sodium Chloride Mini Bag 100 ML IVPB SCH (18:00)
[2017-08-25] MEDS: Ondansetron 4 MG/2 ML VIAL IVP SCH ×6 (00:27→22:17)
[2017-08-25] MEDS: Metoclopramide 10 MG/2 ML VIAL IVP SCH ×4 (00:27→17:51)
[2017-08-25] MEDS: *HR* Metoprolol 5 MG/5 ML VIAL IVP SCH ×4 (00:27→17:51)
[2017-08-25] MEDS: D5% in 0.45% NACL 1,000 ML IVC SCH ×4 (02:27→16:25)
[2017-08-25] MEDS: *HR* Heparin 5,000 UNIT/ML VIAL SQ SCH ×2 (05:26→17:49)
[2017-08-25] MEDS: Insulin LISPRO 300 UNITS/3 ML VIAL SQ SCH ×4 (06:00→17:50)
[2017-08-25 06:28] LABS: Eosinophils # 0.3 K/mcL (0.0-0.6); Hematocrit 34.9 % (35.3-44.9); Hemoglobin 11.3 g/dL (11.5-15.4); Mean Corpuscular HGB Conc 32.4 g/dL (31.6-35.5); Mean Corpuscular Volume 86.4 fL (83.0-100.0); Mean Platelet Volume 9.9 fL (9.4-12.4); Monocytes # 1.4 K/mcL (0.0-1.3); Platelet Count 271 K/mcL (140-400); Red Blood Count 4.04 M/mcL (3.82-4.97); Red Cell Distribution Width 13.9 % (11.5-14.5)
[2017-08-25 07:00] LABS: BUN/Creatinine Ratio 31 (6-26); Blood Urea Nitrogen 19 mg/dL (7-20); Calcium 8.8 mg/dL (8.6-10.8); Carbon Dioxide 27 mEq/L (19-29); Chloride 101 mEq/L (98-109); Glucose 101 mg/dL (70-99); Magnesium 1.9 mg/dL (1.6-2.6); Osmolality,Calculated 284 (280-300); Phosphorous 3.2 mg/dL (2.3-4.7); Sodium 136 mEq/L (136-145); eGFR For African Americans > 60 (> 60); eGFR For Non-African Americans > 60 (> 60)
[2017-08-25 08:12] LABS: Lymphocytes # 1.7 K/mcL (0.6-4.6); Neutrophils # 9.9 K/mcL (1.6-8.9); Platelet Estimate Normal (Normal); Polychromasia 1+ (Not Present); Smudge Cells Present (Not Present); Target Cells 1+ (Not Present); Toxic Granulation Present (Not Present)
[2017-08-25] MEDS: Pantoprazole 40 MG VIAL IVP SCH (08:41)
[2017-08-25] MEDS: Doxycycline 100 MG in 0.9 % Sodium Chloride 150 ML IVPB SCH ×2 (09:55→22:17)
[2017-08-25] MEDS ORDERED: *HR* LORazepam 0.5 MG TABLET PO PRN (10:08)
[2017-08-25] MEDS ORDERED: *HR* HYDROcodone/Acet 5/325 mg TABLET PO PRN ×3 (10:09→10:19)
--- NOTE | 2017-08-25 10:14 | General Surgery Progress Note ---
Date of Encounter: 08/25/17 Time of Encounter: 09:45 - Assessment and Plan (1) Partial small bowel obstruction Current Visit: Yes Status: Acute POD #7 Exploratory laparotomy, lysis of adhesions with Dr. Neely; Repeat CT of abdomen/pelvis today with PO contrast only (elevated WBC with bandemia and tachycardia) 08/24/2017 shows resolved SBO and no postoperative complications. NG was placed to gravity 08/24/2017, no output noted. D/c NG tube Continue TPN; will start limited clears Supportive care and pain control Incentive Spirometer every 1 hour while awake PPI therapy daily Out of bed to chair TID and ambulate with assistance as tolerated Repeat am labs Continue PT/OT for mobilization- requesting rehab at discharge Will complete CXR, BL UE and LE venous doppler to r/o DVT, blood cultures x2, and d/c IV narcotic pain medication d/t sedation vs MSchanges. IF all is negative, will complete head CT to r/u sinusitis from NG tube as cause of leuokcytosis Do not disturb between 11pm and 0600 nightly (2) Nausea and vomiting Current Visit: Yes Status: Resolved see above Qualifiers: Vomiting type: unspecified Vomiting Intractability: non-intractable Qualified Code(s): R11.2 - Nausea with vomiting, unspecified (3) Lactose intolerance in adult Current Visit: Yes Status: Acute No lactose on trays (4) Leukocytosis Current Visit: Yes Status: Acute Etiology unclear at this time. Blood cultures x2 CXR to r/o PNA Urine culture BL upper and Lower EXT venous doppler to r/o DVT. If all negative, will complete a head CT to r/o sinusitis as complication from NG tube. repeat AM labs Will continue to closely monitor Qualifiers: Leukocytosis type: bandemia Qualified Code(s): D72.825 - Bandemia (5) Sepsis Current Visit: Yes Status: Acute Meets current sepsis criteria. See A/P for leukocytosis Qualifiers: Sepsis type: sepsis due to unspecified organism Qualified Code(s): A41.9 - Sepsis, unspecified organism Subjective Patient reports: flatus, bowel movement, afebrile Narrative: Unable to obtain subjective information from patient. She will not open her eyes and speak to me. When asked how she is feeling she simply raises her eyebrows and shrugs her shoulders. Her who is at bedside states that she do not complained of nausea overnight and was able to get a little bit of rest. He requests periods of uninterrupted sleep throughout the night. Objective Vital Signs - Last 8 Hours Temp Pulse Resp BP Pulse Ox 08/25/17 07:07 97.5 F L 106 17 101/59 96 08/25/17 04:38 97.9 F 112 15 118/80 97 08/25/17 02:48 97.9 F 103 16 116/66 96 Intake and Output 08/24/17 08/25/17 08/25/17 23:59 07:59 15:59 Intake Total 150 / 150 750 / 750 1000 / 1000 Output Total 1120 / 1120 700 / 700 Balance -970 / -970 50 / 50 1000 / 1000 Intake: IV Fluids 150 / 150 750 / 750 1000 / 1000 D5% And 0.45% Nacl 1000 Ml Bag 500 / 500 1000 / 1000 1,000 ML @ 80 mls/hr IVC . [id number] [facility] Rx#:[id number] Doxycycline 100 MG In 0.9 % 150 / 150 Sodium Chloride 150 ML @ 150 mls/hr IVPB Q12HR [facility] Rx#: [id number] Intralipid 20% 250 ML @ 21 mls/ 250 / 250 hr IVPB MoWeFr@1700 [facility] Rx#: [id number] Oral 0 / 0 0 / 0 Output: Urine 1000 / 1000 500 / 500 Stool 120 / 120 0 / 0 Gastric Drainage 0 / 0 200 / 200 Other: Meal NPO NPO Stool Consistency liquid Blood Glucose* 119 136 - General physical appearance no distress - Eyes other (CIRILO) - ENT atraumatic, normocephalic - Neck Neck exam: trachea midline, no venous distension, other (Positive right carotid bruit vs radiation of aortic murmur) - Respiratory other (Decreased bilateral breath sounds. Poor inspiratory effort.) - Cardiovascular Cardiovascular exam: Present: tachycardia, murmurs (3/6 systolic murmur) - Abdomen Abdomen: Present: bowel sounds present (Fainting hypoactive.), soft, tender ( Expected postoperative), wound (Moderate amount of green, liquid, output in the ostomy. There is also air in the ostomy.) Hernia: none - Incision Incision: Present: clean and dry, intact - Integumentary no rash - Neurologic other (Unable to assess) - Musculoskeletal normal posture - Psychiatric other (Unable to assess) - Labs 08/25/17 06:20 08/25/17 Unknown Diabetes panel 08/25/17 Range/Units Unknown Sodium 136 (136-145) mEq/L Potassium 4.0 (3.5-4.5) mEq/L Chloride 101 (98-109) mEq/L Carbon Dioxide 27 (19-29) mEq/L BUN 19 (7-20) mg/dL Creatinine 0.62 (0.57-1.11) mg/dL Glucose 101 H (70-99) mg/dL Calcium 8.8 (8.6-10.8) mg/dL Calcium panel 08/25/17 Range/Units Unknown Calcium 8.8 (8.6-10.8) mg/dL Phosphorus 3.2 (2.3-4.7) mg/dL Pituitary panel 08/25/17 Range/Units Unknown Sodium 136 (136-145) mEq/L Potassium 4.0 (3.5-4.5) mEq/L Chloride 101 (98-109) mEq/L Carbon Dioxide 27 (19-29) mEq/L BUN 19 (7-20) mg/dL Creatinine 0.62 (0.57-1.11) mg/dL Glucose 101 H (70-99) mg/dL Calcium 8.8 (8.6-10.8) mg/dL Adrenal panel 08/25/17 Range/Units Unknown Sodium 136 (136-145) mEq/L Potassium 4.0 (3.5-4.5) mEq/L Chloride 101 (98-109) mEq/L Carbon Dioxide 27 (19-29) mEq/L BUN 19 (7-20) mg/dL Creatinine 0.62 (0.57-1.11) mg/dL Glucose 101 H (70-99) mg/dL Calcium 8.8 (8.6-10.8) mg/dL - VTE Documentation of Mechanical Device: Intermittent pneumatic compression device Consult Discharge Plan - Plan Referrals: Dudley Gómez DO [Primary Care Provider] -
[2017-08-25] MEDS ORDERED: Acetaminophen 325 MG TABLET PO PRN (10:18)
[2017-08-25] MEDS: Ketorolac 15 MG/ML VIAL IVP SCH ×2 (11:50→17:51)
[2017-08-25] MEDS ORDERED: Clinimix E 5%-20% SOLUTION 2,000 ML with MVI, adult with vitamin K 10 ML IVC SCH (17:00)
[2017-08-26] MEDS: Metoclopramide 10 MG/2 ML VIAL IVP SCH ×5 (01:25→23:58)
[2017-08-26] MEDS: Ketorolac 15 MG/ML VIAL IVP SCH ×5 (01:26→23:57)
[2017-08-26] MEDS: *HR* Metoprolol 5 MG/5 ML VIAL IVP SCH ×5 (01:28→23:58)
[2017-08-26] MEDS: Ondansetron 4 MG/2 ML VIAL IVP SCH ×7 (01:30→23:58)
[2017-08-26] MEDS: Insulin LISPRO 300 UNITS/3 ML VIAL SQ SCH ×4 (06:18→17:32)
[2017-08-26] MEDS: *HR* Heparin 5,000 UNIT/ML VIAL SQ SCH ×2 (06:34→17:47)
[2017-08-26 07:07] LABS: Hematocrit 33.7 % (35.3-44.9); Hemoglobin 10.9 g/dL (11.5-15.4); Mean Corpuscular HGB Conc 32.3 g/dL (31.6-35.5); Mean Corpuscular Hemoglobin 28.1 pg (28.0-33.3); Mean Corpuscular Volume 86.9 fL (83.0-100.0); Platelet Count 292 K/mcL (140-400); Red Blood Count 3.88 M/mcL (3.82-4.97); Red Cell Distribution Width 13.9 % (11.5-14.5)
[2017-08-26 07:35] LABS: Eosinophils # 0.3 K/mcL (0.0-0.6); Lymphocytes # 0.6 K/mcL (0.6-4.6); Neutrophils # 13.1 K/mcL (1.6-8.9); Platelet Estimate Normal (Normal)
[2017-08-26 07:36] LABS: Polychromasia 1+ (Not Present)
[2017-08-26] MEDS: Pantoprazole 40 MG VIAL IVP SCH (09:40)
--- NOTE | 2017-08-26 10:51 | General Surgery Progress Note ---
Date of Encounter: 08/26/17 Time of Encounter: 10:48 - Assessment and Plan (1) Partial small bowel obstruction Current Visit: Yes Status: Acute pod 8 ex lap jennifer starting clears, pt with lactose intolerance continue colostomy care OOB to chair with all meals PT/OT prn pain control prn antiemetics ambulate hallway gi/dvt prophylaxis (2) Small bowel obstruction due to adhesions Current Visit: Yes Status: Acute see above (3) UTI (urinary tract infection) Current Visit: Yes Status: Resolved repeat culture negative, stop antibiotics Qualifiers: Urinary tract infection type: acute cystitis Hematuria presence: without hematuria Qualified Code(s): N30.00 - Acute cystitis without hematuria (4) Hypertension Current Visit: Yes Status: Chronic continue iv lopressor, normotensive, monitor Qualifiers: Hypertension type: essential hypertension Qualified Code(s): I10 - Essential (primary) hypertension (5) Protein calorie malnutrition Current Visit: Yes Status: Acute continue tpn until able to take in adequate po intake Qualifiers: Protein-calorie malnutrition severity: moderate Qualified Code(s): E44.0 - Moderate protein-calorie malnutrition (6) Physical deconditioning Current Visit: Yes Status: Acute continue PT/OT and plan rehab once able to DC (7) Pleural effusion Current Visit: Yes Status: Acute continue aggressive pulmonary toilet IS q 10 minutes while awake duoneb bid cough and deep breath (8) Leukocytosis Current Visit: Yes Status: Acute monitor wbc cxr shows small pleural effusion superficial clot in left cephalic vein - monitor with US extremity, warm compress to arm, elevate arm Qualifiers: Leukocytosis type: unspecified Qualified Code(s): D72.829 - Elevated white blood cell count, unspecified Subjective Patient reports: no new complaints, feels better, tolerating liquids well ( hasnt taken in much liquids yet), voiding w/o difficulty, flatus, bowel movement (liquid), afebrile Objective Vital Signs - Last 8 Hours Temp Pulse Resp BP Pulse Ox 08/26/17 08:29 98.6 F 104 14 142/86 98 08/26/17 04:19 97.6 F 103 16 121/66 98 Intake and Output 08/25/17 08/26/17 08/26/17 23:59 07:59 15:59 Intake Total 1275 / 1275 0 / 0 Output Total 400 / 400 550 / 550 Balance 875 / 875 -550 / -550 Intake: IV Fluids 1175 / 1175 D5% And 0.45% Nacl 1000 Ml Bag 500 / 500 1,000 ML @ 80 mls/hr IVC . [id number] [facility] Rx#:[id number] Clinimix E 5%-20% SOLUTION 2, 675 / 675 000 ML @ 55 mls/hr IVC .Q24H [facility] with M.v.i. Adult 10 ml Rx# :[id number] Oral 100 / 100 0 / 0 Output: Urine 100 / 100 550 / 550 Stool 300 / 300 Other: Stool Consistency liquid Stool Color Green Blood Glucose* 128 122 112 - General physical appearance well nourished, no distress - Eyes PERRL, normal ocular movement - ENT normal mucosa, normocephalic - Neck Neck exam: trachea midline - Respiratory normal expansion, normal respiratory effort - Cardiovascular Cardiovascular exam: Present: RRR - Abdomen Abdomen: Present: bowel sounds present, soft, tender (minimal expected post op tenderness). Absent: guarding, rebound - Integumentary no rash, no growths - Neurologic CN 2-12 grossly intact - Musculoskeletal normal posture - Psychiatric oriented to time, oriented to person, oriented to place, speech is normal, memory intact - Additional Exam colostomy pink and putting out liquid stool - Labs 08/26/17 06:41 08/25/17 Unknown Short CBC 08/26/17 Range/Units 06:41 WBC 13.9 H (4.3-11.1) K/mcL Hgb 10.9 L (11.5-15.4) g/dL Hct 33.7 L (35.3-44.9) % Plt Count 292 (140-400) K/mcL Neutrophils # 13.1 H (1.6-8.9) K/mcL Vital Signs Temp Pulse Resp BP Pulse Ox 08/26/17 08:29 98.6 F 104 14 142/86 98 08/26/17 04:19 97.6 F 103 16 121/66 98 08/26/17 00:34 98.2 F 109 15 131/70 97 08/25/17 20:12 98.4 F 111 16 136/82 96 08/25/17 11:20 98.0 F 114 16 117/73 95 Intake and Output 11/08/26/17 08/26/17 23:59 07:59 15:59 Intake Total 1275 / 1275 0 / 0 Output Total 400 / 400 550 / 550 Balance 875 / 875 -550 / -550 Intake: IV Fluids 1175 / 1175 D5% And 0.45% Nacl 1000 Ml Bag 500 / 500 1,000 ML @ 80 mls/hr IVC . [id number] [facility] Rx#:[id number] Clinimix E 5%-20% SOLUTION 2, 675 / 675 000 ML @ 55 mls/hr IVC .Q24H [facility] with M.v.i. Adult 10 ml Rx# :[id number] Oral 100 / 100 0 / 0 Output: Urine 100 / 100 550 / 550 Stool 300 / 300 Other: Stool Consistency liquid Stool Color Green Blood Glucose* 128 122 112 - VTE Documentation of Mechanical Device: Intermittent pneumatic compression device Consult Discharge Plan - Plan Referrals: Dudley Gómez DO [Primary Care Provider] -
[2017-08-26 11:57] LABS: BUN/Creatinine Ratio 35 (6-26); Blood Urea Nitrogen 24 mg/dL (7-20); Carbon Dioxide 23 mEq/L (19-29); Chloride 105 mEq/L (98-109); Glucose 178 mg/dL (70-99); Magnesium 1.6 mg/dL (1.6-2.6); Osmolality,Calculated 288 (280-300); Phosphorous 3.2 mg/dL (2.3-4.7); Potassium 3.8 mEq/L (3.5-4.5); Sodium 135 mEq/L (136-145); eGFR For African Americans > 60 (> 60); eGFR For Non-African Americans > 60 (> 60)
[2017-08-26] MEDS: Ipratropium/Albuterol Neb 3 ML IH SCH ×2 (12:09→22:19)
[2017-08-26] MEDS: D5% in 0.45% NACL 1,000 ML IVC SCH ×2 (21:40→23:58)
[2017-08-27] MEDS: Insulin LISPRO 300 UNITS/3 ML VIAL SQ SCH ×4 (00:01→17:25)
[2017-08-27] MEDS: Doxycycline 100 MG in 0.9 % Sodium Chloride 150 ML IVPB SCH (01:24)
[2017-08-27] MEDS: Ondansetron 4 MG/2 ML VIAL IVP SCH ×5 (03:18→20:18)
[2017-08-27] MEDS: Metoclopramide 10 MG/2 ML VIAL IVP SCH ×4 (05:54→23:30)
[2017-08-27] MEDS: Ketorolac 15 MG/ML VIAL IVP SCH ×2 (05:54→11:58)
[2017-08-27] MEDS: *HR* Metoprolol 5 MG/5 ML VIAL IVP SCH ×4 (05:55→23:30)
[2017-08-27] MEDS: *HR* Heparin 5,000 UNIT/ML VIAL SQ SCH ×2 (05:55→17:33)
[2017-08-27] MEDS: Pantoprazole 40 MG VIAL IVP SCH (08:01)
--- NOTE | 2017-08-27 11:04 | General Surgery Progress Note ---
Date of Encounter: 08/27/17 Time of Encounter: 10:40 - Assessment and Plan (1) Small bowel obstruction due to adhesions Current Visit: Yes Status: Acute The patient is doing well and has recovered her bowel function. I have recommended full liquid diet but the patient would like to advance to regular diet for dietary preferences and I think this is reasonable. I would like to repeat her white blood cell count tomorrow. Subjective Narrative: The patient has had lysis of adhesions. Today she has a bowel movement and flatus in her ostomy bag. She feels very well like to advance her diet. The patient has requested that she not get full liquids like to try regular diet. I think this is reasonable. We will advance her to regular diet. White blood cell count today 13,900. She is afebrile. Incision is clean and dry. Objective Vital Signs - Last 8 Hours Temp Pulse Resp BP Pulse Ox 08/27/17 10:56 97.9 F 108 16 142/85 95 08/27/17 07:35 97.6 F 108 16 158/96 95 08/27/17 05:58 82 116/75 Intake and Output 08/26/17 08/27/17 08/27/17 23:59 07:59 15:59 Intake Total 1075 / 1075 Output Total 1300 / 1300 600 / 600 275 / 275 Balance -225 / -225 -600 / -600 -275 / -275 Intake: IV Fluids 1000 / 1000 D5% And 0.45% Nacl 1000 Ml Bag 1000 / 1000 1,000 ML @ 80 mls/hr IVC . [id number] [facility] Rx#:[id number] Oral 75 / 75 Output: Urine 800 / 800 450 / 450 200 / 200 Stool 500 / 500 150 / 150 75 / 75 Other: Meal Dinner Stool Color Green Weight 47.3 kg Blood Glucose* 130 99 Patient Weight 08/27/17 23:59 Weight 47.3 kg - General physical appearance chronically ill, other (Frail) - Respiratory normal expansion, normal respiratory effort, clear to percussion, clear to auscultation - Cardiovascular Cardiovascular exam: Present: RRR, no murmurs/rubs/gallops - Abdomen Abdomen: Present: bowel sounds present, soft (Ostomy pink with flatus and stool) - Incision Incision: Present: clean and dry - Neurologic normal coordination, normal sensation - Psychiatric oriented to time, oriented to person, oriented to place, speech is normal, memory intact - Labs 08/26/17 06:41 08/26/17 11:29 Diabetes panel 08/26/17 Range/Units 11:29 Sodium 135 L (136-145) mEq/L Potassium 3.8 (3.5-4.5) mEq/L Chloride 105 (98-109) mEq/L Carbon Dioxide 23 (19-29) mEq/L BUN 24 H (7-20) mg/dL Creatinine 0.68 (0.57-1.11) mg/dL Glucose 178 H (70-99) mg/dL Calcium 9.0 (8.6-10.8) mg/dL Calcium panel 08/26/17 Range/Units 11:29 Calcium 9.0 (8.6-10.8) mg/dL Phosphorus 3.2 (2.3-4.7) mg/dL Pituitary panel 08/26/17 Range/Units 11:29 Sodium 135 L (136-145) mEq/L Potassium 3.8 (3.5-4.5) mEq/L Chloride 105 (98-109) mEq/L Carbon Dioxide 23 (19-29) mEq/L BUN 24 H (7-20) mg/dL Creatinine 0.68 (0.57-1.11) mg/dL Glucose 178 H (70-99) mg/dL Calcium 9.0 (8.6-10.8) mg/dL Adrenal panel 08/26/17 Range/Units 11:29 Sodium 135 L (136-145) mEq/L Potassium 3.8 (3.5-4.5) mEq/L Chloride 105 (98-109) mEq/L Carbon Dioxide 23 (19-29) mEq/L BUN 24 H (7-20) mg/dL Creatinine 0.68 (0.57-1.11) mg/dL Glucose 178 H (70-99) mg/dL Calcium 9.0 (8.6-10.8) mg/dL - VTE Documentation of Mechanical Device: Intermittent pneumatic compression device Consult Discharge Plan - Plan Referrals: Dudley Gómez DO [Primary Care Provider] -
[2017-08-27] MEDS: Ipratropium/Albuterol Neb 3 ML IH SCH ×2 (11:41→21:13)
[2017-08-27] MEDS: D5% in 0.45% NACL 1,000 ML IVC SCH (17:33)
[2017-08-28] MEDS: Insulin LISPRO 300 UNITS/3 ML VIAL SQ SCH ×5 (00:12→23:24)
[2017-08-28] MEDS: Ondansetron 4 MG/2 ML VIAL IVP SCH ×7 (00:12→23:25)
[2017-08-28] MEDS: Metoclopramide 10 MG/2 ML VIAL IVP SCH ×4 (05:46→23:25)
[2017-08-28] MEDS: *HR* Metoprolol 5 MG/5 ML VIAL IVP SCH ×4 (05:46→23:20)
[2017-08-28] MEDS: *HR* Heparin 5,000 UNIT/ML VIAL SQ SCH ×2 (05:46→18:17)
[2017-08-28 06:05] LABS: Basophils # 0.1 K/mcL (0.0-0.2); Basophils % 0.6 %; Eosinophils # 0.3 K/mcL (0.0-0.6); Eosinophils % 3.3 %; Hematocrit 29.1 % (35.3-44.9); Hemoglobin 9.6 g/dL (11.5-15.4); Immature Granulocytes % 7.9 % (0-4); Lymphocytes # 0.8 K/mcL (0.6-4.6); Lymphocytes % 10.5 %; Mean Corpuscular Hemoglobin 28.7 pg (28.0-33.3); Mean Corpuscular Volume 86.9 fL (83.0-100.0); Mean Platelet Volume 9.6 fL (9.4-12.4); Monocytes % 12.1 %; Neutrophils # 5.1 K/mcL (1.6-8.9); Platelet Count 327 K/mcL (140-400); Red Blood Count 3.35 M/mcL (3.82-4.97); Red Cell Distribution Width 14.1 % (11.5-14.5); Segmented Neutrophils % 65.6 %
[2017-08-28 06:06] LABS: Monocytes # 0.9 K/mcL (0.0-1.3)
[2017-08-28 06:25] LABS: Platelet Estimate Normal (Normal)
[2017-08-28] MEDS: Ipratropium/Albuterol Neb 3 ML IH SCH ×2 (08:23→21:43)
[2017-08-28] MEDS: Pantoprazole 40 MG VIAL IVP SCH (10:02)
--- NOTE | 2017-08-28 11:36 | General Surgery Progress Note ---
Date of Encounter: 08/28/17 Time of Encounter: 11:25 - Assessment and Plan (1) Small bowel obstruction due to adhesions Current Visit: Yes Status: Acute The patient is doing well and has recovered her bowel function. I have recommended full liquid diet but the patient would like to advance to regular diet for dietary preferences and I think this is reasonable. I would like to repeat her white blood cell count tomorrow. 08/28/2017. The patient has had bowel movement. She feels well. We will continue with her nighttime Elavil dose she should be ready for discharge to extended care facility rehabilitation tomorrow Subjective Narrative: The patient is sitting at the bedside and very little pain. She had bowel movement. She is tolerating regular diet. Her pain control is good. She feels that the nighttime dose of medicine was helpful in getting her to sleep but she felt a bit drowsy this morning. I used Elavil 25 mg by mouth daily at bedtime for 1 dose last night and I will renew that for tonight's dose. She is making slow but steady progress. She should be ready for discharge on Tuesday. Objective Vital Signs - Last 8 Hours Temp Pulse Resp BP Pulse Ox 08/28/17 08:23 16 95 08/28/17 05:50 98.6 F 111 14 126/74 94 Intake and Output 08/27/17 08/28/17 08/28/17 23:59 07:59 15:59 Output Total 700 / 700 Balance -700 / -700 Output: Urine 500 / 500 Stool 200 / 200 Other: Stool Size Small Stool Consistency formed # Voids 1 # Bowel Movements 1 Blood Glucose* 109 - General physical appearance well developed, other (Frail) - Respiratory normal expansion, normal respiratory effort, clear to percussion, clear to auscultation - Cardiovascular Cardiovascular exam: Present: RRR, no murmurs/rubs/gallops - Abdomen Abdomen: Present: bowel sounds present, soft, non tender, distended - Incision Incision: Present: clean and dry (Ostomy in good condition) - Neurologic CN 2-12 grossly intact, normal coordination, normal sensation - Psychiatric oriented to time, oriented to person, oriented to place, speech is normal, memory intact - Labs 08/28/17 06:02 08/26/17 11:29 - VTE Documentation of Mechanical Device: Intermittent pneumatic compression device Consult Discharge Plan - Plan Referrals: Dudley Gómez, DO [Primary Care Provider] -
[2017-08-28] MEDS: D5% in 0.45% NACL 1,000 ML IVC SCH (13:54)
[2017-08-29] MEDS: Ondansetron 4 MG/2 ML VIAL IVP SCH ×3 (03:25→13:50)
[2017-08-29] MEDS: Insulin LISPRO 300 UNITS/3 ML VIAL SQ SCH ×2 (05:41→13:50)
[2017-08-29] MEDS: Metoclopramide 10 MG/2 ML VIAL IVP SCH (05:41)
[2017-08-29] MEDS: *HR* Metoprolol 5 MG/5 ML VIAL IVP SCH (05:50)
[2017-08-29] MEDS: *HR* Heparin 5,000 UNIT/ML VIAL SQ SCH (05:50)
[2017-08-29] MEDS ORDERED: Metoprolol XL (24 HR) Succ 50 MG TAB.ER.24H PO SCH (09:00)
[2017-08-29] MEDS ORDERED: cloNIDine HCl 0.1 MG TABLET PO SCH (09:00)
[2017-08-29] MEDS ORDERED: hydroCHLOROthiazide 25 MG TABLET PO SCH (09:00)
[2017-08-29 10:25] VITALS: BP 117/67
[2017-08-29] MEDS: Ipratropium/Albuterol Neb 3 ML IH SCH (10:54)
--- NOTE | 2017-08-29 11:11 | Discharge Summary ---
Date of Encounter: 08/29/17 Time of Encounter: 11:10 - Discharge Diagnosis (1) Partial small bowel obstruction Priority: Primary Status: Resolved (2) Nausea and vomiting Priority: Primary Status: Resolved Qualifiers: Vomiting type: unspecified Vomiting Intractability: non-intractable Qualified Code(s): R11.2 - Nausea with vomiting, unspecified (3) Lactose intolerance in adult Priority: Primary Status: Chronic (4) Leukocytosis Priority: Primary Status: Resolved Qualifiers: Leukocytosis type: bandemia Qualified Code(s): D72.825 - Bandemia (5) Sepsis Priority: Secondary Status: Resolved Qualifiers: Sepsis type: sepsis due to unspecified organism Qualified Code(s): A41.9 - Sepsis, unspecified organism - Discharge Medications Prescriptions: HYDROcodone/Acet 5/325 mg [[place] 5-325 mg] 1 tab PO Q6HR PRN #28 tablet PRN Reason: Pain Home Medications: Cholecalciferol (Vitamin D3) [Vitamin D3] 2,000 unit PO DAILY 06/21/16 [History] cloNIDine HCl [CloNIDine HCl] 0.1 mg PO BID 06/21/16 [History] Acetaminophen [Tylenol] 650 mg PO Q6HR PRN 10/05/16 [History] hydroCHLOROthiazide [Hydrochlorothiazide] 25 mg PO QAM 08/13/17 [History] Metoprolol Succinate 100 mg PO DAILY 08/14/17 [History] HYDROcodone/Acet 5/325 mg [[place] 5-325 mg] 1 tab PO Q6HR PRN #28 tablet [Rx] Allergies/Adverse Reactions: 3 Allergy/AdvReac Type Severity Reaction Status Date / Time Amoxicillin [From Augmentin] AdvReac Hives Verified 10/05/16 09:48 celecoxib [From Celebrex] AdvReac Hives Verified 10/05/16 09:48 ciprofloxacin [From Cipro] AdvReac Hives Verified 10/05/16 09:48 clavulanic acid AdvReac Hives Verified 10/05/16 09:48 [From Augmentin] penicillamine AdvReac Hives Verified 10/05/16 09:48 Sulfa (Sulfonamide AdvReac Hives Verified 10/05/16 09:48 Antibiotics) General Surgery Exam Initial Vital Signs Temp Pulse Resp BP Pulse Ox 98.2 F 78 16 156/67 96 08/14/17 00:05 08/14/17 00:05 08/14/17 00:05 08/14/17 00:05 08/14/17 00:05 - Additional Findings VITAL SIGNS: Reviewed. GENERAL: In no apparent distress. HEENT: atraumatic, normocephalic, normal occular movements, hearing grossly intact. Oropharynx WNL NECK: No adenopathy, no JVD. CHEST: Chest with clear breath sounds bilaterally. No wheezes, rales, or rhonchi. CARDIAC: Regular rate and rhythm. S1 and S2, without murmurs, gallops, or rubs. VASCULAR: No Edema. Peripheral pulses normal and equal in all extremities. ABDOMEN: Incisions are clean, dry, and intact. There is no ecchymosis visible. There is no S/S of infection noted. Active bowel sounds in all 4 quadrants. Output in ostomy device. Expected postoperative tenderness noted. MUSCULOSKELETAL: no focal deficits noted. NEUROLOGIC EXAM: Alert and oriented x 3. No focal sensory or strength deficits. Speech normal. Follows commands. PSYCHIATRIC: A&O x3. Mood normal. SKIN: No rash or lesions. Date of admission: 08/16/17 13:15 Primary care physician: Dudley Gómez DO Consults: 08/19/17 08:36 Consult to PICC team [Consult to Invasive Line Access Team] [CONS] Routine Reason for Consult: PICC line placement Line Type: PICC Time Notified: 08:37 Call Completed: Yes 08/19/17 08:38 Consult to Occupational Therapy [CONS] Routine Comment: Evaluate, develop and implement POC Reason for Consult: evaluate for rehab at discharge Consult to Physical Therapy [CONS] Routine Comment: Evaluate, develop and implement POC Reason for Consult: evaluate rehab at discharge Consult to Evp [CONS] Routine Reason for SW Consult: rehab at discharge; patient lives in [facility] and request rehab there 08/19/17 08:41 Consult to Invasive Line Access Team [CONS] Routine Reason for Consult: Picc Line Insertion Line Type: PICC Time Notified: 08:41 Call Completed: Yes 08/19/17 10:54 consult to client account assistant [Consult to Nutrition] [CONS] Routine Comment: Total fluid rate 80ml/ hour (MIV + TPN) Consulting Provider: NUTRITION Reason for Dietary Consult: TPN Start and Manage 08/19/17 19:32 Consult to Invasive Line Access Team [CONS] Routine Reason for Consult: Picc Line Insertion for TPN Line Type: PICC - Patient Status Disposition: Transfer SNF Condition: Fair Functional capacity at discharge: uses cane/walker Overall status at discharge: patient is not back to baseline - Discharge Instructions Instructions: Bowel Obstruction (DC) Follow Up With: Lisa Neely MD [Partnered Physician] - 09/07/17 9:35 am Dudley Gómez DO [Primary Care Provider] - Additional Instructions: General Surgical Discharge Instructions 1. No pushing, pulling, or lifting greater than 15 lbs for two weeks. 2. You may shower beginning today, but no tub baths, soaking, or swimming for 2 weeks. 3. You may resume driving when you are off narcotics and are safe to react in a car. 4. Take narcotics as directed. Do not take more narcotics then directed and do not share your narcotics with any other person. Do not drink alcohol while on narcotics. 5. Take stool softeners (Colace) or a water based laxative (Miralax) while taking narcotics. You may hold for loose stools. 6. Report any fevers greater than 100.5F, increase abdominal discomfort, drainage that looks like pus, increased redness or pain at the surgical site, or any vomiting. 7. Report any pain in the calves, shortness of breath, or rapid heartbeat. 8. Follow-up in the office as directed. 9. If you were prescribed antibiotics, do not stop them without talking to your provider. OK for patient to ride with her daughter to the rehab facility - Diet and Activity Activity: as per physical therapy, increase activity as tolerated Diet: advance to your usual diet - Hospital Course Hospital course: Ms. Lange is a 89 year old female who presented on 08/14/2017 for a partial small bowel obstruction which progressed to a full obstruction. She was taking to the operating room on 08/18/2017 where she underwent an exploratory laparotomy and lysis of adhesions with Dr. Neely. Her hospital course was complicated by a postoperative ileus for which she was treated with bowel rest, NG tube, and supportive care. He is tolerating a full liquid diet without nausea or vomiting, is having output in her colostomy, is ambulating/ transferring with the assistance of PT/OT, is afebrile, vital signs are stable, and her white blood cell count is normal. We will begin discharge planning to inpatient rehab so that she may increase her strength and ADLs. She will follow -up in approximately one week to 10 days in the office. Length of stay 15 days (08/14-) - Time Spent with Patient Total time spent providing and/or coordinating discharge services: Labs on day of discharge: Preliminary micro results at discharge 08/25/17 11:17 Blood Culture - Preliminary Peripheral Venipuncture No growth. 08/25/17 11:05 Blood Culture - Preliminary Peripheral Central Cath, Picc No growth. - Impressions ITS Impressions Abdomen X-Ray 08/15/17 15:40 IMPRESSION: Persistent air-filled dilated loops of bowel favoring small-bowel obstruction given paucity of bowel gas within the colon and CT findings. No free air. D/ / 08/15/2017 17:00:38 Marie Ramos MD / jesus Interpreting Provider: Marie Ramos MD X-Ray 08/15/17 19:02 IMPRESSION: Enteric tube with tip within the distal esophagus. Advancement of the tube is recommended. The findings were sent to the Radiology Results Communication [facility] at 7:39 pm on 08/15/2017to be communicated to a licensed caregiver. D/ / Neha Burt Cha, MD / Neha Burt Cha, MD Interpreting Provider: Neha Burt Cha, MD X-Ray 08/15/17 21:11 IMPRESSION: Enteric tube side port in lower esophagus. RECOMMENDATION: Consider advancement. D/ / Devan Navas MD / Devan Navas MD Interpreting Provider: Devan Navas MD Abdomen X-Ray 08/17/17 11:11 IMPRESSION: NG tube with the proximal side port within the fundus near the GE junction. Suggest advancement by 8 cm. Significant improvement in the partial small-bowel obstruction. D/ / 08/17/2017 12:05:57 Nathan Antoine MD / [email or web address] Interpreting Provider: Nathan Antoine MD Small Bowel X-Ray 08/18/17 08:51 IMPRESSION: 1. Similar appearance of a partial small bowel obstruction with no visualization a transition point, likely to be located within ileum in the right pelvis based upon the CT appearance. 2. Delayed passage of contrast from the small bowel into the colon, first appearing at 3 hour 20 minutes. 3. Consider suction of the stomach via the gastric tube, as the stomach remains moderately distended with contrast at the end of the procedure. This may help prevent potential aspiration. D/ / Solis Rollins MD / Solis Rollins MD Interpreting Provider: Solis Rollins MD Abdomen X-Ray 08/23/17 07:00 IMPRESSION: No significant dilatation of bowel loops. Ostomy in the left lower quadrant. D/ / 08/23/2017 15:21:40 Solis Sams MD / lourdes Interpreting Provider: Solis Sams MD Abdomen/Pelvis CT 08/24/17 14:30 IMPRESSION: 1. Partial small bowel obstruction seen on the previous exam has resolved. No postoperative complications are identified. 2. Stable appearance of left lower quadrant colostomy. D/ / Segun Jerome MD / Segun Jerome MD Interpreting Provider: Segun Jerome MD Chest X-Ray 08/25/17 09:53 IMPRESSION: 1. Small left pleural effusion and minimal left basilar atelectasis. 2. Right central venous catheter tip in the right atrium. 3. Enteric catheter present with side port below the GE junction. D/ / Warren Pearce MD / Warren Pearce MD Interpreting Provider: Warren Pearce MD
--- NOTE | 2017-08-29 11:19 | Physician Discharge Referral ---
ExtendedCare Referral Info Transfer To: [facility] Provider in Charge: Dr. Lisa Neely Provider in Charge after Transfer: PCP (Or Customer Relations Assistant of facility), Other Institutional Level of Care: Skilled (For Rehab) - Diagnosis (1) Partial small bowel obstruction Priority: Primary Status: Resolved (2) Nausea and vomiting Status: Resolved (3) Lactose intolerance in adult Priority: Primary Status: Chronic (4) Leukocytosis Priority: Secondary Status: Resolved (5) Sepsis Priority: Secondary Status: Resolved Expected Duration of Placement: Less than 30 days Prognosis: Fair Aware of Diagnosis: Patient, Family Aware of Prognosis: Patient, Family - Transfer Medications Prescriptions: HYDROcodone/Acet 5/325 mg [[place] 5-325 mg] 1 tab PO Q6HR PRN #28 tablet PRN Reason: Pain Home Medications: Cholecalciferol (Vitamin D3) [Vitamin D3] 2,000 unit PO DAILY 06/21/16 [History] cloNIDine HCl [CloNIDine HCl] 0.1 mg PO BID 06/21/16 [History] Acetaminophen [Tylenol] 650 mg PO Q6HR PRN 10/05/16 [History] hydroCHLOROthiazide [Hydrochlorothiazide] 25 mg PO QAM 08/13/17 [History] Metoprolol Succinate 100 mg PO DAILY 08/14/17 [History] HYDROcodone/Acet 5/325 mg [[place] 5-325 mg] 1 tab PO Q6HR PRN #28 tablet [Rx] Allergies/Adverse Reactions: 3 Allergy/AdvReac Type Severity Reaction Status Date / Time Amoxicillin [From Augmentin] AdvReac Hives Verified 10/05/16 09:48 celecoxib [From Celebrex] AdvReac Hives Verified 10/05/16 09:48 ciprofloxacin [From Cipro] AdvReac Hives Verified 10/05/16 09:48 clavulanic acid AdvReac Hives Verified 10/05/16 09:48 [From Augmentin] penicillamine AdvReac Hives Verified 10/05/16 09:48 Sulfa (Sulfonamide AdvReac Hives Verified 10/05/16 09:48 Antibiotics) - Respiratory Orders Smoking Cessation: Smoking cessation has been advised. For more information, call the [place] Tobacco Quit Line at 0-811-JBLC-NOW. - Ancillary Orders May use pressure relief devices daily prn, May go on SHEMAR w/family/respon green party w /meds at nurse discretion PRN - Advance Directives Living Will: No Power of Apparel Fashion Designer: No Code Status: Full Code - Mobility Orders Ambulate - Rehabiliation Orders Rehab Potential: Good Rehab Orders: Evaluation for Physical Therapy, Evaluation for Occupational Therapy - Treatments Skin tear care topically daily PRN per policy List/Other: General Surgical Discharge Instructions 1. No pushing, pulling, or lifting greater than 15 lbs for two weeks. 2. You may shower beginning today, but no tub baths, soaking, or swimming for 2 weeks. 3. You may resume driving when you are off narcotics and are safe to react in a car. 4. Take narcotics as directed. Do not take more narcotics then directed and do not share your narcotics with any other person. Do not drink alcohol while on narcotics. 5. Take stool softeners (Colace) or a water based laxative (Miralax) while taking narcotics. You may hold for loose stools. 6. Report any fevers greater than 100.5F, increase abdominal discomfort, drainage that looks like pus, increased redness or pain at the surgical site, or any vomiting. 7. Report any pain in the calves, shortness of breath, or rapid heartbeat. 8. Follow-up in the office as directed. 9. If you were prescribed antibiotics, do not stop them without talking to your provider. - Diet Orders Regular CERTIFICATION: I certify that the transfer of the above named patient to an Extended Care Facility is necessary for the continuing treatment of the diagnosis listed. The above information is true and accurate reflection of patient's current condition. Confidential - Redisclosure prohibited without a patient's written consent.
[2017-08-29] MEDS: D5% in 0.45% NACL 1,000 ML IVC SCH (13:51)
== END 2017-08-29 14:14 | DRG 335 ==
LOC: 3ANU
PROVIDERS: ADMIT Surgery; ATTEND Surgery